=== PATIENT | female | born 1995 | race Caucasian/White ===

== ENCOUNTER → 2021-09-22 18:02 | Outpatient (CLI) | payer BC, SELFPAY ==
[2021-09-22 19:28] LABS: Basophils % 0.5 % (0.1-2.0); Eosinophils # 0.1 K/mm3 (0.0-0.4); Eosinophils % 0.8 % (0.1-12.0); Hematocrit 39.8 % (37.0-47.0); Hemoglobin 12.8 g/dL (12.2-16.2); Lymphocytes # 2.1 K/mm3 (0.7-4.5); Lymphocytes % 26.6 % (10-50); Mean Corpuscular HGB Conc 32.2 g/dL (31.8-35.4); Mean Corpuscular Hemoglobin 28.8 pg (27.0-31.2); Mean Corpuscular Volume 89.2 fl (81-99); Mean Platelet Volume 9.9 fl (7.4-10.4); Monocytes # 0.4 K/mm3 (0.1-1.0); Monocytes % 4.4 % (1.7-9.3); Neutrophils # 5.4 K/mm3 (1.8-7.8); Neutrophils % 67.7 % (37.0-80.0); Platelet Count 389 K/mm3 (142-424); Red Blood Count 4.46 M/mm3 (4.20-5.40); Red Cell Distribution Width 12.9 % (11.5-17.5)
[2021-09-22 20:07] LABS: Alanine Aminotransferase 21 U/L (12-78); Albumin Level 3.8 g/dl (3.5-5.0); Albumin/Globulin Ratio 1.4 (1.1-1.8); Alkaline Phosphatase 81 U/L (38-126); Anion Gap 9.2 mEq/L (5-15); Aspartate Amino Transferase 26 U/L (14-36); Bilirubin,Total 0.3 mg/dl (0.2-1.3); Blood Urea Nitrogen 14 mg/dl (7-17); Calcium 9.3 mg/dl (8.4-10.2); Carbon Dioxide 25 mmol/L (22.0-30.0); Chloride 107 mmol/L (98-107); Chol/HDL Ratio 3.4 (1-3.5); Cholesterol 177 mg/dl (140-200); Estimated Glomerular Filt Rate 76 ml/min (>60); GFR (African American) 92 ML/MIN (>60); Globulin 2.8 g/dL (1.3-3.2); Glucose 93 mg/dl (74-100); HDL Cholesterol 52 mg/dl (40-60); Potassium 4.2 mmoL/L (3.5-5.1); Sodium 137 mmol/L (136-145); Total Protein,Serum 6.6 g/dl (6.3-8.2); Triglycerides 99 mg/dl (30-150); VLDL Cholesterol 20 mg/dL (0-40)
== END ==
PROVIDERS: Visit Provider Nurse Practitioner Family
DX: Z00.00 Encounter for general adult medical examination without abnormal findings (principal)
CPT/HCPCS: 80053; 80061; 84443; 85025

== ENCOUNTER 2024-08-23 08:17 | Outpatient (CLI) | payer BC, SELFPAY ==
[2024-08-23 09:34] LABS: HCG,Quantitative 148 mIU/ml (0-5.42)
[2024-08-24 09:18] LABS: Progesterone 24.5 ng/mL (.)
== END 2024-08-23 23:59 | disposition home or self-care (01) ==
LOC: LAB 08:18
PROVIDERS: PCP Nurse Practitioner Family; Visit Provider Obstetrics & Gynecology
DX: Z34.81 Encounter for supervision of other normal pregnancy, first trimester (principal)
CPT/HCPCS: 36415; 84144; 84702

== ENCOUNTER 2024-09-17 16:15 | Outpatient (CLI) | payer BC, SELFPAY | END 2024-09-17 23:59 | disposition home or self-care (01) | LOC: LAB.DROPOF 16:15 | PROVIDERS: PCP Obstetrics & Gynecology; Visit Provider Obstetrics & Gynecology | DX: Z34.90 Encounter for supervision of normal pregnancy, unspecified, unspecified trimester (principal) | CPT/HCPCS: 87086 ==

== ENCOUNTER 2024-10-17 09:09 | Outpatient (CLI) | payer BC, SELFPAY ==
[2024-10-17 14:56] LABS: RPR W/RFX Titers Nonreactive (Nonreactive)
[2024-10-17 15:08] LABS: HIV Combo NEGATIVE (Negative)
[2024-10-18 05:53] LABS: HCV Ab Non Reactive (Non Reactive); Hepatitis B Surface Antigen Negative (Negative)
[2024-10-18 06:18] LABS: Rubella Antibodies, IgG 1.64 index (Immune >0.99)
== END 2024-10-17 23:59 | disposition home or self-care (01) ==
LOC: LAB 09:10
PROVIDERS: PCP Internal Medicine Adolescent Medicine; Visit Provider Obstetrics & Gynecology
DX: Z34.91 Encounter for supervision of normal pregnancy, unspecified, first trimester (principal); Z3A.12 12 weeks gestation of pregnancy
CPT/HCPCS: 36415; 86592; 86762; 86803; 87340; 87389

== ENCOUNTER 2024-10-19 08:34 | Outpatient (CLI) | payer BC, SELFPAY ==
[2024-10-19 09:20] LABS: Basophils % 0.3 % (0.1-2.0); Eosinophils % 0.5 % (0.1-12.0); Hematocrit 37.7 % (37.0-47.0); Hemoglobin 12.5 g/dL (12.2-16.2); Lymphocytes # 1.5 K/mm3 (0.7-4.5); Lymphocytes % 20.2 % (10-50); Mean Corpuscular HGB Conc 33.2 g/dL (31.8-35.4); Mean Corpuscular Hemoglobin 27.8 pg (27.0-31.2); Mean Platelet Volume 10.7 fl (7.4-10.4); Monocytes # 0.3 K/mm3 (0.1-1.0); Monocytes % 4.2 % (1.7-9.3); Neutrophils # 5.6 K/mm3 (1.8-7.8); Neutrophils % 74.5 % (37.0-80.0); Platelet Count 286 K/mm3 (142-424); Red Blood Count 4.49 M/mm3 (4.20-5.40); Red Cell Distribution Width 12.8 % (11.5-17.5); White Blood Count 7.4 K/mm3 (4.8-10.8)
[2024-10-19 15:29] LABS: HIV Combo NEGATIVE (Negative)
== END 2024-10-19 23:59 | disposition home or self-care (01) ==
LOC: LAB 08:35
PROVIDERS: PCP Internal Medicine Adolescent Medicine; Visit Provider Obstetrics & Gynecology
DX: Z34.90 Encounter for supervision of normal pregnancy, unspecified, unspecified trimester (principal)
CPT/HCPCS: 36415; 85025; 86850; 87389

== ENCOUNTER 2024-12-16 14:01 | Outpatient (CLI) | payer BC, SELFPAY ==
--- NOTE | 2024-12-16 14:01 | US_ITS ---
PROCEDURE: US OB /MATERNAL DETAIL CLINICAL INDICATION: 20 wk anatomy COMPARISON: No exams were available for comparison FINDINGS: Transabdominal sonographic images of the pelvis were obtained. From her established due date she is 20 weeks 4 days. Single viable intrauterine gestation. Cephalic position. Placenta: Anteriorplacenta grade 1. There is an average amount of fluid. The cervix appears satisfactory. Closed and measuring 4.08 cm in length. Complete survey performed and was unremarkable on the submitted images as in PACS. No discrete anomalies identified on survey imaging by technologist. Active fetus. Three-vessel cord with satisfactory umbilical cord insertion. 4- chamber heart noted. Situs, aortic arch, LVOT, RVOT, three-vessel view appear normal. Survey of brain & ventricles Unremarkable. Cerebellum, thalamus, choroid plexus, cisterna magna appear normal. Face and neck survey unremarkable. Profile, nasion, lips and nose appeared normal. Diaphragm and chest views unremarkable. Abdomen: Both kidneys noted and unremarkable. Stomach and bladder noted and satisfactory. Spine: Survey of the spine satisfactory with no anomalies identified nor imaged. Cervical, thoracic, lower spine appear normal. Both arms and legs noted. Amniotic Fluid: Adequate. MVP 4.35 cm Measurements: Average ultrasound age 21weeks 2days. Estimated due date by ultrasound age 0704/26/2025. Estimated weight 413g BPD = 21weeks 2days HC = 20weeks 5days AC = 21weeks 5days FL = 21weeks 1day Growth Percentile= 83 Heart Rate = 155bpm Cerebellum = 19weeks 5days Humerus = 21weeks 3days HC/AC is 1.1 FL/BPD is 0.7 FL/AC is 0.21 IMPRESSION: 1. Viable fetus in the cephalic presentation with an anterior placenta grade 1. 2. The fluid is within normal limits with an amniotic fluid index 4.35 cm. 3. Anatomical examination appears normal. Difficult scan secondary to maternal obesity. 4. biometry is consistent with the dates. Dictated by: Donato Crowder MD 12/16/2024 16:23 Donato Crowder MD in [place] 12/16/2024 16:23
== END 2024-12-16 23:59 | disposition home or self-care (01) ==
LOC: RAD 14:01
PROVIDERS: PCP Internal Medicine Adolescent Medicine; Visit Provider Obstetrics & Gynecology
DX: Z36.3 Encounter for antenatal screening for malformations (principal); Z3A.20 20 weeks gestation of pregnancy
CPT/HCPCS: 76811

== ENCOUNTER 2025-01-27 10:34 | Outpatient (CLI) | payer BC, SELFPAY ==
[2025-01-27 12:31] LABS: Glucose 1 Hour 136 mg/dL (74-100)
== END 2025-01-27 23:59 | disposition home or self-care (01) ==
PROVIDERS: PCP Internal Medicine Adolescent Medicine; Visit Provider Obstetrics & Gynecology
DX: Z3A.28 28 weeks gestation of pregnancy (principal)
CPT/HCPCS: 36415; 82947

== ENCOUNTER 2025-02-07 07:08 | Outpatient (CLI) | payer BC, SELFPAY ==
[2025-02-07 08:10] LABS: Glucose,Fasting 92 mg/dl (74-100)
[2025-02-07 08:59] LABS: Glucose 1 Hour 160 mg/dL (74-100)
[2025-02-07 10:17] LABS: Glucose 2 Hour 129 mg/dL (74-100)
[2025-02-07 10:51] LABS: Glucose 3 Hour 110 mg/dL (74-100)
== END 2025-02-07 23:59 | disposition home or self-care (01) ==
LOC: LAB 07:09
PROVIDERS: PCP Internal Medicine Adolescent Medicine; Visit Provider Obstetrics & Gynecology
DX: O99.210 Obesity complicating pregnancy, unspecified trimester (principal)
CPT/HCPCS: 36415; 82951

== ENCOUNTER 2025-02-19 07:53 | Outpatient (CLI) | payer BC, SELFPAY ==
--- NOTE | 2025-02-19 08:00 | US_ITS ---
PROCEDURE: US OB FOLLOW UP CLINICAL INDICATION: Needs 02/19/25 before 9:30 for Growth COMPARISON: No exams were available for comparison FINDINGS: Transabdominal sonographic images of the pelvis were obtained. The following parameters are obtained: From her established due date she is 29weeks 6days Viable fetus in the cephalic presentation with an anterior placenta grade 1. The cervix measures 3.81 cm AUA 31 weeks 3 days Estimated weight 1768 grams, 3 lb 14 oz heart rate: 132bpm bpm. BPD: 31weeks 1day, 76 percentile HC: 30weeks 6days, 43 percentile AC: 31weeks 4days, 88 percentile FL: 31weeks 5days, 82 percentile HC/AC: 1.02 FL/BPD: 0.78 FL/AC: 0.22 Growth percentile: 89 Amniotic fluid index: 14.49cm, MVP 5.56 cm No obvious anomalies evident. Stomach, bladder, kidneys, three-vessel cord, four chamber heart appear normal. IMPRESSION: 1. Viable fetus in the cephalic presentation with an anterior placenta grade 1. 2. The fluid is within normal limits with an amniotic fluid index 14.49 cm, MVP 5.56 cm. 3. There has been good interval growth with the fetus currently 89th percentile, abdominal circumference is almost 2 weeks ahead. 4. Limited anatomical scan appears normal. Dictated by: Donato Crowder MD 02/19/2025 11:59 Donato Crowder MD in OV 02/19/2025 11:59
== END 2025-02-19 23:59 | disposition home or self-care (01) ==
LOC: RAD 07:53
PROVIDERS: PCP Internal Medicine Adolescent Medicine; Visit Provider Obstetrics & Gynecology
DX: Z36.3 Encounter for antenatal screening for malformations (principal); Z3A.28 28 weeks gestation of pregnancy
CPT/HCPCS: 76816

== ENCOUNTER 2025-03-19 07:49 | Outpatient (CLI) | payer BC, SELFPAY ==
--- NOTE | 2025-03-19 08:00 | US_ITS ---
PROCEDURE: US OB FOLLOW UP CLINICAL INDICATION: 4 week f/u; growth COMPARISON: US US OB /MATERNAL DETAIL from 12/16/2024 US US OB FOLLOW UP from 02/19/2025 FINDINGS: Transabdominal sonographic images of the pelvis were obtained. The following parameters are obtained: From her established due date she is 33weeks 6days Viable fetus in the cephalic presentation with an anterior placenta grade 1. There are several small placental lakes. The cervix measures 2.99 cm heart rate: 128bpm bpm. BPD: 35weeks 3days, 85 percentile HC: 35weeks 4days, 57 percentile AC: 34weeks 6days, 80 percentile FL: 33weeks 5days, 34 percent HC/AC: 1.02 FL/BPD: 0.75 FL/AC: 0.21 Growth percentile: 67 Amniotic fluid: MVP 6.47 cm No obvious anomalies evident. profile seen, stomach, bladder, kidneys, three-vessel cord, four chamber heart appear normal. IMPRESSION: 1. Viable fetus in the cephalic presentation with an anterior placenta grade 1. There are several small placental lakes. 2. The fluid is within normal limits with an MVP 6.47 cm. 3. There has been good interval growth with the fetus currently 67th percentile. The abdominal circumference is now only 1 week ahead. 4. Limited anatomical scan appears normal. Dictated by: Donato Crowder MD 03/19/2025 13:41 Donato Crowder MD in OV 03/19/2025 13:41
== END 2025-03-19 23:59 | disposition home or self-care (01) ==
PROVIDERS: PCP Internal Medicine Adolescent Medicine; Visit Provider Obstetrics & Gynecology
DX: O99.213 Obesity complicating pregnancy, third trimester (principal); E66.9 Obesity, unspecified; Z3A.33 33 weeks gestation of pregnancy
CPT/HCPCS: 76816

== ENCOUNTER 2025-04-04 09:25 | Outpatient (CLI) | payer BC, SELFPAY ==
--- OUTSIDE RECORDS SUMMARY | 2025-01-18 17:30 | XMS_ITS ---
Author Organization [facility] Address [address] [place] [address] Care Team Providers Care Farm Implement Mechanic Name Role Phone Jean Gandhi Primary Care Provider [phone] Amelia Bill Unavailable [phone] Migration, Provider Unavailable Unavailable Allergies Allergen (clinical drug ingredient) Drug/Non Drug Allergy documented on EMR Reaction Allergy Type Onset Date Status ANTIHISTAMINES (uncoded) seizure type symptoms Allergy Active NYQUIL COLD/FLU RELIEF (uncoded) seizure type symptoms Allergy Active REASON FOR VISIT [facility] Conversion Encounter Medications Medication SIG (Take, Route, Frequency, Duration) Notes Start Date End Date Status Flonase Allergy Relief 50 MCG/ACT 1 spray(s) in each nostril once a day for 30 days 05/28/2024 Active predniSONE 20 MG 1 tab(s) orally once a day for 3 days 05/28/2024 Active Pseudoephedrine HCl ER 120 MG 1 tab(s) orally daily for 30 days 05/28/2024 Active Prena1 *Please review a nd pick correct strength-formulati on from [facility] options. If intended option is not shown, discontinue and re-order from Quick Search* Active Tri-Sprintec 0.18/0.215/0.25 MG-35 MCG 1 tab(s) orally once a day Active Encounters Encounter Location Date Provider Diagnosis [facility] [address] [place] [address] 01/18/2025 Provider Migration Plan Of Treatment Medication Medication Name Sig Start Date Stop Date Notes Flonase Allergy Relief 50 MCG/ACT 1 spra y(s) in each nostril once a day for 30 days 05/28/2024 predniSONE 20 MG 1 tab(s) orally once a day for 3 days 05/28/2024 Pseudoephedrine HCl ER 120 MG 1 tab(s) o rally daily for 30 days 05/28/2024 Progress Notes * Hannah OCAMPO DDOB: 5 (29 yo F)Acc No.[id number]:01/18/2025 Patient: Hannah FOX D Provider: Batsheva Tejeda :1995 A ge:29 Y S ex:Female Date:01/18/2025 Address:[address] [place] [address] [place], [id number] Pcp:Jean Gandhi Subjective: * Chief Complaints: * [facility] . [facility] * Medical History: * Medications: T aking Tri-Sprintec 0.18/0.215/0.25 MG-35 MCG Tablet 1 tab(s) orally once a day , Taking Prena1 , Notes to Pharmacist: *Please review and pick [facility]. If intended option is not shown, discontinue and re-order from Quick Search* * Allergies: N YQUIL COLD/FLU RELIEF: seizure type symptoms, ANTIHISTAMINES: seizure type symptoms. Objective: * Vitals: Assessment: Plan: * Treatment: * * Electronic signature of Prov ideandie Migration on 04/07/2025 at 09:38 AM EDT Sign off status: Pending * Provider: Batsheva bowers Migration Date: 01/18/2025 Generated for Saira torres/Ignacio/Maye on: 04/07/2025 09:38 AM EDT
--- OUTSIDE RECORDS SUMMARY | 2025-03-21 11:30 | XMS_ITS ---
Author Organization [facility] IM PE D JESSICA Address [address] [place], [place] [address] Care Team Providers Care Petroleum Products Sales Representative Name Role Phone Jean Gandhi Primary Care Provider Amelia Bill Unavailable [phone] Cele Delgado Unavailable [phone] Allergies Allergen (clinical drug ingredient) Drug/Non Drug [...] a day for 30 days 05/28/2024 Active Vital Signs Temperature 98.5 degrees Fahrenheit 03/21/20 25 Heart Rate 80 /min 03/21/2025 Blood pressure systolic 118 mm Hg 03/21/20 25 Blood pressure diastolic 70 mm Hg 025 Height 5 ft 6.25 in in 03/21/2025 Weight 281.2 lbs 03/21/2025 BMI 45.04 kg/m2 03/21/2025 Encounters Encounter Location Date Provider Diagnosis [facility] [address] [place] [address] 03/21/2025 Cele Delgado Viral URI J06.9 Assessments [...] Hannah OCAMPO DDOB: 5 (29 yo F)Acc No.[id number]:03/21/2025 Progress Notes Patient: Hannah FOX Cecilio Provider: Dali Delgado APRN :1995 A ge:29 Y S ex:Female Date:03/21/2025 Address:[address] [place] [id number] Pcp:Jean Gandhi Subjective: * Chief Complaints: * [...] without rashes. Assessment: * Assessment: 1. V iral URI - J06.9 (Primary) Plan: * Treatment: * Follow Up: p rn * * Sign off status: Completed true * Provider: Dali Delgado APRN Date: 03/21/2025 Generated for Saira torres/Ignacio/Toniaitting on: 0 04/07/2025 09:37 AM EDT History and Physical Notes * HPI [...]
--- OUTSIDE RECORDS SUMMARY | 2025-04-07 09:38 | XMS_ITS | Referral Summary ---
Author Organization [facility] Address [address] [place] [address] Care Team Providers Care Recorder Helper [employer]ity [employer]ing Name Role Phone Unavailable Primary Care Provider Unavailabl e Allergies Active Allergy Reactions Criticality Noted Date Comments Diphenhydramine Hcl 04/26/2023 Medications vitamin w/kczjxys-bwbx-a olate ( PLUS) 27 mg iron- 1 mg Tab Take 1 tablet by mouth daily. Active Active Problems Problem Noted Date Diagnosed Date Gestational hypertension affecting first pregnan cy 05/10/2023 Social History Tobacco Use Types Packs/Day Years Used Date Smoking Tobacco: Never Passive Smoke Exposure: Never Smokeless Tobacco: Never Tobacco Cessation:Counseling Given: Not Answered Alcohol Use Standard Drinks/Week Comments Never 0 (1 standard drink = 0.6 oz pur e alcohol) PRAPARE - Transportation Answer Date Re corded In the past 12 months, has l ack of transportation kept you from medical appointments or from getting medications? No 05/10/2023 Lack of Transportation (Non-Medical) Not on file 05/10/2023 Housing Stability Vital Sign Answer Theo e Recorded In the last 12 months, was t here a time when you were not able to pay the mortgage or rent on time? No 05/10/2023 In the last 12 months, how many places have you lived? 1 05/10/2023 In the last 12 months, was t here a time when you did not have a steady place to sleep or slept in a fci (including now)? No 05/10/2023 Interpersonal Safety Answer Date Record ed Family or friends hurt you Not on file 10/27 Family or friends insult you Not on file 09/2024 Family or friends threaten you Not on file 0 10/27/2023 Family or friends scream or curse at you Not on file 10/27/2023 Housing Stability Answer Date Recorded Living situation today Not on file Living situation problems Not on file 2023 Food Insecurity Answer Date Recorded Food run out past 12 months Not on file 10/16 Food did not last past 12 months Not on file 10/27/2023 Employment Answer Date Recorded Help finding and keeping a job Not on file 0 10/27/2023 Family and Community Support Answer Theo e Recorded Help with Day to Day Activities Not on file 10/27/2023 Feeling Lonely or Isolated Not on file 10/27 Educational Attainment Answer Date Mitchell rded Speak language other than Uruguayan at home Not on file 10/27/2023 Want help with school or training Not on file 10/27/2023 Depression Answer Date Recorded PHQ-2 Risk Not on file 10/27/2023 Disabilities Answer Date Recorded Difficulty concentrating Not on file 024 Difficulty doing errands alone Not on file 0 10/27/2023 Substance Use Answer Date Recorded Used prescription meds for non-medical reasons N ot on file 10/27/2023 Used illegal drugs past 12 months Not on file 10/27/2023 Comments No Sex and Gender Information Value Date Recorded Sex Assigned at Not on file Legal Sex Female 8:50 AM CDT Gender Identity Not on file Sexual Orientation Not on file Last Filed Vital Signs Vital Sign Reading Time Taken Comments Blood Pressure 129/74 05/12/2023 8:00 AM EDT Pulse 82 05/12/2023 8:00 AM EDT Temperature 36.8 C (98.3 F) 05/12/2023 8:00 AM EDT Respiratory Rate 16 05/12/2023 8:00 AM EDT Oxygen Saturation 99% 05/10/2023 6:15 PM EDT Inhaled Oxygen Concentration - - Weight 127.5 kg (281 lb) 05/10/2023 9:59 AM EDT Height 167.6 cm (5' 6 ) 05/10/2023 9:59 AM EDT Body Mass Index 45.35 05/10/2023 9:59 AM EDT Plan of Treatment Not on file Insurance BLUE CROSS/BLUE SHIELD Advance Directives For more information, please contact: [phone] * Full Code (Latest Code Status on File) Date Activated Date Inactivated Comments 05/10/2023 6:53 PM 05/12/2023 2:11 PM If no pulse: No intervention If has pulse: Use intubation, mechanical ventilation, defibrillation, ACLS medications, or cardioversion as indicated. Call [employer] M[employer] TENDER * Full Code Date Activated Date Inactivated Comments 05/10/2023 8:54 AM 05/10/2023 6:53 PM
--- OUTSIDE RECORDS SUMMARY | 2025-04-07 09:38 | XMS_ITS | Patient Health Record ---
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 Name Role Phone Jean Gandhi Primary Care Provider Amelia Bill Unavailable [phone] Cele Delgado Unavailable [phone] Amelia Vickers Unavailable [phone] Migration, Provider Unavailable Unavailable Allergies Allergen (clinical drug ingredient) Drug/Non Drug Allergy documented on EMR Reaction Allergy Type Onset Date Status ANTIHISTAMINES (uncoded) seizure type symptoms Allergy Active NYQUIL COLD/FLU RELIEF (uncoded) seizure type symptoms Allergy Active Results Component Value Reference Range Notes Rapid Strep Reviewed date:05/21/2024 01:02:20 PM Interpretation:Negative Performing Lab: Notes/Report: Negative Rapid Covid Antigen Reviewed date:05/21/2024 04:56:13 PM Interpretation:Negative Performing Lab: Notes/Report: Negative Medications Medication SIG (Take, Route, Frequency, Duration) Notes Start Date End Date Status Amoxicillin 875 MG 1 tablet Orally Twic e a day for 7 days 03/25/2025 Active Prena1 Active Flonase Allergy Relief 50 MCG/ACT 1 spray(s) in each nostril once a day for 30 days 05/28/2024 Active Immunizations Vaccine Route Administration Date Status Comme nts HPV4 (Gardasil Vaccine Dose 3-VFC) Unknown 12/08/2010 Administered HPV4 (Gardasil Vaccine Dose 2-VFC) IM Intramuscular 07/16/2010 Administered Gardisil (HPV4) VFC Unknown 06/01/2010 Administered Adacel (Tdap) IM Intramuscular 06/15/2016 Administered Problems Problem Type SNOMED Code ICD Code Onset Dates Problem Status W/U Status Risk Notes Problem 73304179 Flexural eczema (L20.82) Active confirmed Problem 285469233 Seasonal allergies (J30.2) Active confirmed Problem 486100542 BMI 40.0-44.9, adult (Z68.41) Active confirmed Problem 035264012 BMI 38.0-38.9,adult (Z68.38) Active confirmed Problem 74070585 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 Vital Signs Heart Rate 80 /min 03/21/2025 Temperature 98.5 degrees Fahrenheit 03/21/2025 Blood pressure diastolic 70 mm Hg 03/21/2025 Height 5 ft 6.25 in in 03/21/2025 Blood pressure systolic 118 mm Hg 03/21/2025 Weight 281.2 lbs 03/21/2025 BMI 45.04 kg/m2 03/21/2025 Encounters Encounter Location Date Provider Diagnosis [facility] [address] [place] [address] 01/18/2025 Provider Migration [facility] [place] [address] [address] 05/21/2024 Amleia Vickers Sore throat J02.9 and Viral URI J06.9 [facility] [address] [facility] [address] [place] [address] 03/21/2025 Cele Delgado Viral URI J06.9 [facility] [address] [address] 05/28/2024 Amelia Rancho [facility] [address] [facility] [address] [place] [address] 03/25/2025 Cele Delgado Assessments Encounter Date Diagnosis (ICD Code) Assessment Notes Treatment Notes Treatment Clinical Notes Section Notes 05/21/2024 Viral URI (ICD-10 - J06.9) Reassurance. Strep and covid negative. Discussed the etiology & expected course of a viral URI and discussed the rationale for not prescribing antibiotics. Continue supportive care with PRN antipyretics, OTC cough/cold meds, nasal saline rinses/Neti pot with distilled water, salt water gargles, cough drops, and humidifier. Encourage PO hydration. Patient must be fever and vomit free x 24 hours without fever reducing medications before going back to work. Discussed the signs and symptoms of worsening condition and need for reassessment in clinic or ED. Follow-up at next physical or sooner if needed. Patient to call office if spikes fever in next 48 hours and will provide a work note if needed. 05/21/2024 Sore throat (ICD-10 - J02.9) 03/21/2025 Viral URI (ICD-10 - J06.9) Reassurance. [...] in clinic or ED. Plan Of Treatment Pending Test Test Name Order Date Rapid Strep 05/03/2012 Rapid Strep 12/05/2014 Rapid Strep 03/19/2009 M-Complete Blood Count Auto Diff 020 M-Complete Blood Count Auto Diff 021 M-Comprehensive Metabolic Panel 06/04/20 20 M-Comprehensive Metabolic Panel 05/08/20 19 M-Comprehensive Metabolic Panel 06/16/20 21 M-Hemoglobin A1C 06/16/2021 M-Lipid Panel 05/08/2019 M-Lipid Panel 06/16/2021 M-Lipid Panel 06/04/2020 M-Thyroid Stimulating Hormone 06/04/2020 M-Thyroid Stimulating Hormone 05/08/2019 M-Thyroid Stimulating Hormone 06/16/2021 Insurance Providers Payer Name Payer Address Payer Phone Subscriber Number Group Number Insured Name Patient Relationship to Insured Coverage Start Date [facility]age End Date [facility] [address] [place] [address] [id number] Hannah Ocampo Self - patient is the insured Medications Administered Medication Instructions Date of Administration Dosage Notes Dexamethasone 4mg Injection 10/21/2021 4 mg Dexamethasone 4mg Injection 08/22/2022 4 mg Dexamethasone 4mg Injection 11/08/2023 4 mg Triamcinolone Acetonide 40mg Injection 10/06/2018 1 mL Kenalog 12/05/2014 1 mL Medical (General) History Medical History History ICD Code migraines murmur Eczema Recurrent otitis with tubes during child anders Surgical History Surgery Date(Month/Year) ear tubes 2002 wisdom teeth extracted 2011 Hospitalization History Reason Date(Month/Year) reaction to stahist 2009 passing out 2008
--- OUTSIDE RECORDS SUMMARY | 2025-04-07 09:38 | XMS_ITS | Data Portability ---
Author Organization [facility] SEN Berry ALCOVA CLOSED Address [address] [facility] [address] [place] [address] Assessment No assessment recorded. Plan of Treatment Reminders Order Date Submit Date Provider Last Modified By Organization Details Last Modified Time Details Appointments None recorded. Lab urinalysis panel, auto 2022 023 [facility], [address] [place] [address] , [address], [place], [address], 3 08:39:58 urinalysis panel, auto 2022 023 [facility], [address] [facility] , [address], [place], [address], 3 08:48:54 Referral None recorded. Procedures None recorded. Surgeries None recorded. Imaging None recorded. Medication Orders Tri-Sprinte c (28) 0.18 mg(7)/0.215 mg(7)/0.25 mg(7)-0.035 mg tablet 2022 023 [facility], [address] [place], [address], 3 14:06:03 Tri-Sprinte c (28) 0.18 mg(7)/0.215 mg(7)/0.25 mg(7)-0.035 mg tablet 2022 023 [facility], [address] [place], [address], 10:02:03 Patient TargetsNo targets recorded. Patient InstructionsNo instructions recorded. Reason for Referral None Reported. Results Created Date Observation Date Name Description Value Unit Range Abnormal Flag Note LastModifiedBy Organization Detail LastModifiedTime 04/05/20 23 04/05/2023 urina lysis panel , auto Unknown Analyte Clean Catch Not Available [address], [place], [address], 04/05/2023 08:09:48 04/05/20 23 04/05/2023 urina lysis panel , auto Unknown Analyte Yellow Not Available [address], [place], [address], 04/05/2023 08:09:48 04/05/20 23 04/05/2023 urina lysis panel , auto Unknown Analyte Clear Not Available [address], [place], [address], 04/05/2023 08:09:48 04/05/20 23 04/05/2023 urina lysis panel , auto Unknown Analyte 1.015 Not Available [address], [place], [address], 04/05/2023 08:09:48 04/05/20 23 04/05/2023 urina lysis panel , auto Unknown Analyte 7.0 Not Available [address], [place], [address], 04/05/2023 08:09:48 04/05/20 23 04/05/2023 urina lysis panel , auto Unknown Analyte 25 Alice/ul Trace Not Available [address], [place], [address], 04/05/2023 08:09:48 04/05/20 23 04/05/2023 urina lysis panel , auto Unknown Analyte Negati ve Not Available [address], [place], [address], 04/05/2023 08:09:48 04/05/20 23 04/05/2023 urina lysis panel , auto Unknown Analyte Negati ve Not Available [address], [place], [address], 04/05/2023 08:09:48 04/05/20 23 04/05/2023 urina lysis panel , auto Unknown Analyte Normal Not Available [address], [place], [address], 04/05/2023 08:09:48 04/05/20 23 04/05/2023 urina lysis panel , auto Unknown Analyte 15 mg/dl (Sm) Not Available [address], [place], [address], 04/05/2023 08:09:48 04/05/20 23 04/05/2023 urina lysis panel , auto Unknown Analyte Normal Not Available [address], [place], [address], 04/05/2023 08:09:48 04/05/20 23 04/05/2023 urina lysis panel , auto Unknown Analyte Negati ve Not Available [address], [place], [address], 04/05/2023 08:09:48 04/05/20 23 04/05/2023 urina lysis panel , auto Unknown Analyte Negati ve Not Available [address], [place], [address], 04/05/2023 08:09:48 04/26/20 23 04/29/2023 CULTU RE, GROUP B STREP culture, group B strep No Group B Strept ococcu s isolat ed. Not Available [facility] [address] [facility], [place], [address], 04/29/2023 15:43:25 04/26/20 23 04/26/2023 urina lysis panel , auto Unknown Analyte Clean Catch Not Available [address], [place], [address], 04/26/2023 08:41:14 04/26/2004/26/2023 urina lysis panel , auto Unknown Analyte Yellow Not Available [address], [place], [address], 04/26/2023 08:41:14 04/26/2004/26/2023 urina lysis panel , auto Unknown Analyte Clear Not Available [address], [place], [address], 04/26/2023 08:41:14 04/26/20 23 04/26/2023 urina lysis panel , auto Unknown Analyte 1.010 Not Available [address], [place], [address], 04/26/2023 08:41:14 04/26/2004/26/2023 urina lysis panel , auto Unknown Analyte 7.0 Not Available [address], [place], [address], 04/26/2023 08:41:14 04/26/2004/26/2023 urina lysis panel , auto Unknown Analyte Negati ve Not Available [address], [place], [address], 04/26/2023 08:41:14 04/26/20 23 04/26/2023 urina lysis panel , auto Unknown Analyte Negati ve Not Available [address], [place], [address], 04/26/2023 08:41:14 04/26/2004/26/2023 urina lysis panel , auto Unknown Analyte Negati ve Not Available [address], [place], [address], 04/26/2023 08:41:14 04/26/2004/26/2023 urina lysis panel , auto Unknown Analyte Normal Not Available [address], [place], [address], 04/26/2023 08:41:14 04/26/20 23 04/26/2023 urina lysis panel , auto Unknown Analyte Negati ve Not Available [address], [place], [address], 04/26/2023 08:41:14 04/26/20 23 04/26/2023 urina lysis panel , auto Unknown Analyte Normal Not Available [address], [place], [address], 04/26/2023 08:41:14 04/26/2004/26/2023 urina lysis panel , auto Unknown Analyte Negati ve Not Available [address], [place], [address], 04/26/2023 08:41:14 04/26/20 23 04/26/2023 urina lysis panel , auto Unknown Analyte Negati ve Not Available [address], [place], [address], 04/26/2023 08:41:14 05/05/20 23 05/05/2023 urina lysis panel , auto Unknown Analyte Clean Catch Not Available [address], [place], [address], 05/05/2023 08:27:20 05/05/20 23 05/05/2023 urina lysis panel , auto Unknown Analyte Yellow Not Available [address], [place], [address], 05/05/2023 08:27:20 05/05/20 23 05/05/2023 urina lysis panel , auto Unknown Analyte Cloudy Not Available [address], [place], [address], 05/05/2023 08:27:20 05/05/20 23 05/05/2023 urina lysis panel , auto Unknown Analyte 1.015 Not Available [address], [place], [address], 05/05/2023 08:27:20 05/05/20 23 05/05/2023 urina lysis panel , auto Unknown Analyte 7.0 Not Available [address], [place], [address], 05/05/2023 08:27:20 05/05/20 23 05/05/2023 urina lysis panel , auto Unknown Analyte Negati ve Not Available [address], [place], [address], 05/05/2023 08:27:20 05/05/20 23 05/05/2023 urina lysis panel , auto Unknown Analyte Negati ve Not Available [address], [place], [address], 05/05/2023 08:27:20 05/05/20 23 05/05/2023 urina lysis panel , auto Unknown Analyte Negati ve Not Available [address], [place], [address], 05/05/2023 08:27:20 05/05/20 23 05/05/2023 urina lysis panel , auto Unknown Analyte Normal Not Available [address], [place], [address], 05/05/2023 08:27:20 05/05/20 23 05/05/2023 urina lysis panel , auto Unknown Analyte 15 mg/dl (Sm) Not Available [address], [place], [address], 05/05/2023 08:27:20 05/05/20 23 05/05/2023 urina lysis panel , auto Unknown Analyte Normal Not Available [address], [place], [address], 05/05/2023 08:27:20 05/05/20 23 05/05/2023 urina lysis panel , auto Unknown Analyte Negati ve Not Available [address], [place], [address], 05/05/2023 08:27:20 05/05/20 23 05/05/2023 urina lysis panel , auto Unknown Analyte Negati ve Not Available [address], [place], [address], 05/05/2023 08:27:20 05/10/20 23 05/10/2023 urina lysis panel , auto Unknown Analyte Clean Catch Not Available [address], [place], [address], 05/10/2023 08:31:32 05/10/20 23 05/10/2023 urina lysis panel , auto Unknown Analyte Pretty Not Available [address], [place], [address], 05/10/2023 08:31:32 05/10/20 23 05/10/2023 urina lysis panel , auto Unknown Analyte Clear Not Available [address], [place], [address], 05/10/2023 08:31:32 05/10/20 23 05/10/2023 urina lysis panel , auto Unknown Analyte 1.020 Not Available [address], [place], [address], 05/10/2023 08:31:32 05/10/20 23 05/10/2023 urina lysis panel , auto Unknown Analyte 6.0 Not Available [address], [place], [address], 05/10/2023 08:31:32 05/10/20 23 05/10/2023 urina lysis panel , auto Unknown Analyte Negati ve Not Available [address], [place], [address], 05/10/2023 08:31:32 05/10/20 23 05/10/2023 urina lysis panel , auto Unknown Analyte Negati ve Not Available [address], [place], [address], 05/10/2023 08:31:32 05/10/20 23 05/10/2023 urina lysis panel , auto Unknown Analyte Negati ve Not Available [address], [place], [address], 05/10/2023 08:31:32 05/10/20 23 05/10/2023 urina lysis panel , auto Unknown Analyte Normal Not Available [address], [place], [address], 05/10/2023 08:31:32 05/10/20 23 05/10/2023 urina lysis panel , auto Unknown Analyte Negati ve Not Available [address], [place], [address], 05/10/2023 08:31:32 05/10/20 23 05/10/2023 urina lysis panel , auto Unknown Analyte Normal Not Available [address], [place], [address], 05/10/2023 08:31:32 05/10/20 23 05/10/2023 urina lysis panel , auto Unknown Analyte Negati ve Not Available [address], [place], [address], 05/10/2023 08:31:32 05/10/20 23 05/10/2023 urina lysis panel , auto Unknown Analyte Negati ve Not Available [address], [place], [address], 05/10/2023 08:31:32 04/26/20 23 04/26/2023 US, obste tric, limit ed [place] [address] [place] [address] Patistuart chaparro Name: HANNAH mayfield : [birth year] 95 Heather mayfield 62 Orderi ng Provid er: ANDERS LAUREANO EXAM DATE: 2022 EXAM: US LIMITE D TRANSA BDOMIN AL CLINIC AL INFORM ATION: LMP: 2021. TECHNI QUE: Multip le sonogr aphic images of the pelvis were obtain ed throug h transa bdomin al route. COMPAR ASHVIN: None. FINDIN GS: GENERA L: Single live fetus. heart rate = 127 bpm. MEASUR EMENTS : Bipari etal Diamet er = 9.1 cm; 37 weeks 0 days. Head Circum ferenc e = 33.4 cm; 38 weeks 2 days. Abdomi nal Circum ferenc e = 33.2 cm; 37 weeks 1 day. Femur Length = 7.2 cm; 37 weeks 1 day. EFW = 3157 gm; 84 percen tile based on gestat ional age by LMP. AMNIOT IC FLUID: MARKUS = 14.5 cm. POSITI ON: Cephal ic presen tation . Placen ta is anteri or. IMPRES KADY: 1. Single live intrau terine fetus in cephal ic presen tation . 2. age by LMP = 35 weeks 6 days; Curren t age by first exam of 10/20/19 23 = 35 weeks 4 days; Curren t age by exam today = 36 weeks 6 days. Interp reted By: Ree vAila MD Electr onical ly Signed By: Ree Avila MD on 023 1:34 PM [facility] [address] [address], [place], [address], 04/27/2023 21:06:41 Result Notes None recorded. Problems Name Problem SNOMED Code Status Onset Date Resolution Date Notes Provider Name and Address Organization Details Recorded Time 53964653 Completed 023 06/20/2023 Katharine Worthington [facility], [facility] 3 09:48:12 Problem Notes None recorded. Procedures Surgical History Date Name Laterality Status Provider Name and Address Organization Details Recorded Time 1 Pap Smear collection completed OMER RODRIGUEZ, CORE WORKER [address] [place], [address], [facility] 06/28/2021 14:19:34 1 Date of Last Pap Smear completed Angela Ortega [facility] 12/09/2022 08:05:34 procedure on ear completed Shawnapat Dowd [facility] 06/24/2020 14:45:54 [place] Teeth Extraction completed Shawna Dowd [facility] 06/24/2020 14:46:00 Imaging Results None recorded. Procedure Notes None recorded. Medical Equipment None Reported. Allergies Allergen ID Allergen Name Allergen Category Reaction Reaction Severity Criticality Documentation Date Start Date Code Code System Note Provider Name and Address Organization Details Recorded Time 954489 Benadryl medicatio n seizure moderate Not available 06/24/2020 7 RxNorm any simil ar medic ation as well [facility] 0 14:39:31 [id number] diphenhyd ramine hydrochlo ride medicatio n Not available Not available Not available 05/12/20232022 1362 RxNorm Poly Lynn [facility] 16:13:37 Medications Name Sig Start Date Stop Date Status Note LastModified by Organization Details LastModified Time Tri-Sprint ec (28) 0.18 mg(7)/0.21 5 mg(7)/0.25 mg(7)-0.03 5 mg tablet Take 1 tablet every day by oral route for 84 days. 023 active Not Available Not Available Not Avai lable active Not Available Not Avai lable Not Available Vitals Date Recorded Body weight Provider Name an d Address Organization Details Last Updated DateTime 05/05/2023 62126.431921 g Cecilio [address]UMONT O [address] [place], [address], [facility] 05/05/2023 08:27:09 Date Recorded Body height Body mass index (BMI) Systolic blood pressure Diastolic blood pressure Provider Name and Address Organization Details Last Updated DateTime 05/05/2023 167.64 cm 29.5 kg/m2 138 mm[Hg] 90 mm[Hg] Ashleigh Diaz [facility] 05/05/2023 08:06:03 Date Recorded Body height Body mass index (BMI) Body weight Systolic blood pressure Diastolic blood pressure Provider Name and Address Organization Details Last Updated DateTime 05/10/2023 167.64 cm 45.5 kg/m2 121018.6 78938 g 152 mm[Hg] 98 mm[Hg] Ashleigh [facility] 3 08:11:44 Date Recorded Body height Body mass index (BMI) Body weight Systolic blood pressure Diastolic blood pressure Provider Name and Address Organization Details Last Updated DateTime 05/17/2023 167.64 cm 41.7 kg/m2 015872.2 7 g 138 mm[Hg] 82 mm[Hg] [facility] 3 09:35:58 Date Recorded Body height Body mass index (BMI) Body weight Systolic blood pressure Diastolic blood pressure Provider Name and Address Organization Details Last Updated DateTime 06/20/2023 167.64 cm 41.2 kg/m2 079349.8 32602 g 128 mm[Hg] 78 mm[Hg] Katharine Worthington [facility] 3 09:47:30 Date Recorded Body height Body mass index (BMI) Body weight Systolic blood pressure Diastolic blood pressure Provider Name and Address Organization Details Last Updated DateTime 07/26/2023 167.64 cm 41.8 kg/m2 406830.4 2 g 132 mm[Hg] 68 mm[Hg] Cira Avni [facility] 3 13:41:19 Social History Question Answer Notes LastModified by Paper Hunter Details LastModified Time Tobacco Smoking Status Never Smoker [facility] 06/24/2020 14:45:11 What Is Your Level Of Caffeine Consumption? Moderate [email or web address] Information not available 06/24/2020 How Much Tobacco Do You Chew? None [email or web address] Information not available 06/24/2020 What Was The Date Of Your Most Recent Tobacco Screening? 07/26/2023 [email or web address] Information not available 07/26/2023 How Much Tobacco Do You Smoke? No [email or web address] Information not available 06/24/2020 Has Tobacco Cessation Counseling Been Provided? No [email or web address] Information not available 12/09/2022 Sex: Female Functional Status Question Answer Note LastModified by Paper Hunter Details LastModified Time Do you use any illicit or recreational drugs? No [email or web address] Information not available 01/06/2023 Do you or have you ever used any other forms of tobacco or nicotine? No [email or web address] Information not available 12/09/2022 What is your level of alcohol consumption? Moderate [email or web address] Information not available 06/24/2020 Do you or have you ever used smokeless tobacco? Never used smokeless tobacco [email or web address] Information not available 06/24/2020 Do you or have you ever used e-cigarettes or vape? Never used electronic cigarettes Information not available 06/24/2020 Mental Status None recorded. Family History Relationship Description Onset Age of this Age Resolved Age Notes LastModified by Organization Details LastModified Time Maternal Grandmother Diabetes mellitus Not available 06/24 14:45:06 Medical History Condition Response Other N Depression N Arthritis N Cancer N Stroke N Varicosities N Hoarseness N Headaches Y Kidney Disease N Heart Problems N Bleeding Disorder N AIDS/HIV N Asthma N Hepatitis N Chicken Pox Y Lung Disease N Glaucoma N Anesthesia Complications Y Deep Vein Thrombosis N Shortness of Breath N High Cholesterol N Liver Disease N Thyroid Problems N Anemia N Immune System Disorder N Heart Attack ([place]) N Diabetes N Seizures/Epilepsy N Hyperlipidemia N Sleep Apnea N Hypertension N Gynecological History Statement/Question Response Abnormal Pap N Regular Cycles Y Date of Last Mammogram Flow Light Date of LMP 07/18/2023 STIs/STDs N Real Heavy Periods N HPV Vaccine Y Duration of Flow (days) 4 Age at Menarche 11 Current Control Method BCPs Painful Periods Y Date of Last Colonoscopy Most Recent Bone Density Menses Monthly Y Date of Last Pap Smear 06/28/2021 LMP Definite Obstetrics History GPAL:G 1 P 1 0 0 1 Type Value Full Term 1 Living 1 Total 1 Immunizations Vaccine Type Date Status Note Provider Nam e and Address Organization Details Recorded Time Tdap 3 completed NOA LAUREANO DO [address] [place], [address], [facility] 04/05/2023 09:16:55 Tdap 6 completed Not Available [facility] 05/12/2023 16:12:28 DTP-Hib 6 completed Not Available [facility] 05/12/2023 16:12:28 MMR 9 completed Not Available [facility] 05/12/2023 16:12:28 MMR 6 completed Not Available [facility] 05/12/2023 16:12:28 OPV 9 completed Not Available [facility] 05/12/2023 16:12:28 DTaP, unspecified formulation 9 completed Not Available [facility] 05/12/2023 16:12:28 Past Encounters Encounter ID Performer Location Encounter Start Date Encounter Closed Date Diagnosis/Indication Diagnosis SNOMED-CT Code Diagnosis ICD10 Code Diagnosis Note [id number] [address] [place] [address] 4 06/24/2020 14:27:02 06/24/2020 15:24:17 Routine gynecologic examination done 9996833100 9101 Z01.419 [facility] 441214832 Z30.[id number] [place] [id number] 06/28/2021 13:45:16 06/28/2021 14:20:06 Gynecologic examination 78542503 Z01.419 PAP obtained todaywill contact patient with resultsNdt ient to follow up in one year for annual exam or sooner as needed Screening for malignant neoplasm of cervix 207157256 Z12.4 [facility] 467873192 Z30.9 No C/I to estrogenNo history of migraines: PE: DVTNon smokerDeni es ACHES [id number] [address] [place] [address] 07/09/2021 14:23:45 07/09/2021 14:40:38 Pain in pelvis 58444767 R10.2 Discussed that right sided pain was likely ovulation due to descriptio n of symptoms and time during cycle it was occurring. Ultrasound was normal. Abnormal u terine bleeding 4636979043 9100 N93.9 Discussed that spotting was likely from pap smear and missing the couple doses of OCPs. Advised to try and take them the same time each day and will decrease likelihood of spotting. [id number] [address] [place] [address] 07/22/2022 13:29:06 07/22/2022 14:19:18 Gynecologic examination 52134294 Z01.419 PAP not indicated todayPatie nt to follow up in one year for annual exam or sooner as needed Family crory nning education 217661435 Z30.02 Recommende d weight loss prior to pregnancyD iscussed increased infertilit y, miscarriag es and complicati ons related to increased BMIAlso advised patient to start PNV now Recommende d avoidance of NSAIDs during ovulationP atient verbalized understand ing [id number] [address] [place] [address] 4 09/23/2022 09:25:31 09/23/2022 10:45:56 Amenorrhea 93855328 N91.2 of unknown location. Discussed possibilit y of normal vs miscarriag e vs ectopic . Discussed the life threatenin g nature of ectopic if not treated immediatel y. Pt to return to ER immediatel y if abdominal pain worsens, vaginal bleeding increases to >1 pad/hr or if pt starts to feel lightheade d or dizzy. Pt states that she understand s and all questions were answered. Will obtain HCG and progestero ne levels and call with results. [id number] [address] [place] [address] 4 10/20/2022 09:09:17 10/20/2022 10:37:16 Normal 66888049 Z34.80 New OB labs todayNT u/s next visit [id number] [address] [place] [address] 4 11/14/2022 07:41:55 11/14/2022 09:04:34 Routine care 015590390 Z34.91 New OB labs WNLNT WNLNIPT today [id number] [address] [place] [address] 4 12/09/2022 07:55:42 12/09/2022 08:35:42 Routine care 958632218 Z34.91 New OB labs WNLNT WNLNIPT low risk femaleAFP todayFetal anatomy next visit [id number] [address] [place] [address] 4 01/06/2023 07:55:48 01/06/2023 08:28:40 Routine care 431973278 Z34.92 New OB labs WNLNT WNLNIPT low risk femaleAFP low riskFetal anatomy WNL [id number] DO [address] [place] [address] 4 02/03/2023 08:16:02 02/03/2023 08:52:13 Routine care 425228410 Z34.92 New OB labs WNLNT WNLNIPT low risk femaleAFP low riskFetal anatomy WNLGCT next visit [id number] DO [address] [place] [address] 4 03/03/2023 07:57:06 03/03/2023 08:49:47 Routine care 757561340 Z34.92 New OB labs WNLNT WNLNIPT low risk femaleAFP low riskFetal anatomy WNLGCT today [id number] [address] [place] [address] 4 03/17/2023 07:58:04 03/17/2023 08:21:43 Routine care [id number] Z34.92 New OB labs WNLNT WNLNIPT low risk femaleAFP low riskFetal anatomy WNLGCT elevated, needs GTT- completing todayTdap next visit [id number] [address] [place] [address] 4 04/05/2023 07:52:22 04/05/2023 08:39:42 Routine care 192702885 Z34.92 New OB labs WNLNT WNLNIPT low risk femaleAFP low riskFetal anatomy WNLGCT elevated, needs GTT WNLTdap todayGBS and growth scan next visit Administra tion of diphtheria, pertussis, and tetanus vaccine 101081655 Z23 [id number] [address] [place] [address] 04/26/2023 07:37:27 04/26/2023 09:30:03 Routine care 490270160 Z34.92 New OB labs WNLNT WNLNIPT low risk femaleAFP low riskFetal anatomy WNLGCT elevated, needs GTT WNLs/p TdapGBS todayGrowt h scan WNL [id number] DO HANY DUMONT [facility] [address] [place] [address] 05/05/2023 08:00:06 05/05/2023 08:36:02 Routine care 004061155 Z34.92 New OB labs WNLNT WNLNIPT low risk femaleAFP low riskFetal anatomy WNLGCT elevated, needs GTT WNLs/p TdapGBS negativeGr owth scan WNL [id number] DO HANY DUMONT [facility] [address] [place] [address] 05/10/2023 08:06:36 05/10/2023 08:45:12 Routine care [id number] Z34.92 New OB labs WNLNT WNLNIPT low risk femaleAFP low riskFetal anatomy WNLGCT elevated, needs GTT WNLs/p TdapGBS negativeGr owth scan WNL - induced hypertension 12175413 O13.9 Will send to L&D for induction [id number] DO HANY DUMONT [facility] [address] [place] [address] 05/17/2023 08:56:59 05/17/2023 10:23:10 Maternal depression screening 9481836810 90841 Z13.32 Brief emotional/ behavioral assessment (e.g., depression inventory) , with scoring of __8 us ing instrument , [place] Depression Scale. state, 2 weeks 57470663 Z39.2 Doing well so far. Will have her return in 5 weeks for exam and control discussion . [id number] DO HANY CHATMAN [facility] [address] [place] [address] 06/20/2023 09:43:17 06/20/2023 10:18:30 Maternal depression screening [id number] Z13.32 Brief emotional/ behavioral assessment (e.g., depression inventory) , with scoring of ___0____ using instrument , Elwood Depression Scale. state [id number] 1 Z39.2 patient is PP from svdmom and baby are doing wellshe is bottle feeding without difficulty her mood is appropriat e and denies SI/HIshe was counseled on options for bc including r/b/a to each and desires to go back to cocpelvic exam wnlPap 2020 nil F/u after 07/22/22 for annual or sooner if needed Contracept ion care management [id number] Z30.9 denies c/i to estrogen. rba discussed to options. desires to restart pills.rx sent to get to annualf/u bp check/clementine al Acne [id number] L70.9 discussed bc options that are most vs least helpful. desires to restart olivia. rx sent [id number] OMER RODRIGUEZ APRN [facility] [address] [place] [address] 07/26/2023 13:34:34 07/26/2023 14:02:43 Gynecologic examination [id number] Z01.419 PAP not indicated todayPatie nt to follow up in one year for annual exam or sooner as needed Contracept ion care management [id number] Z30.9 No history of migraines, DVT/PEnon smokerDeni es ACHESconti nue with current regimen Health Concerns Section Related Observation LastModified by Organization Detai ls LastModified Time None Recorded Concern Status LastModified by Organization Details LastModified Time None Recorded Advance Directives Directive None Recorded Payers Insurance Date Sequence Insurance Name Policy Number Policy No Covered Member ID No Member ID Guarantor Name 07/29/2024 1 [employer]ANDANA (PPO) [id number] Hannah Ocampo [id number] Hannah Ocampo Notes Date Note Type Note Provider Name and Address Organization Details Recorded Time 05/17/2023 text/html Patient here for visit s/p vaginal delivery 1 weeks ago. Doing well. Minimal lochia. Denies abnormal discharge, fever, chills. Formula feeding without difficulty. Denies signs of blues/depression NOA LAUREANO, DO [address] [place], [address], [facility] 05/17/2023 12:24:02 06/20/2023 text/html patient is PP fr om svdshe is doing wellbaby is doing wellshe is bottle feeding without difficultyher mood is appropriate and denies SI/HIshe denies fever, chills, nausea, vomiting, and her bleeding has stopped today on ROS she denies nausea, vomiting, fever, chills, hematuria, dysuria, abnormal vaginal discharge, odor, or itching. 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 [address] [place], [address], [facility] 07/26/2023 14:04:14 OBGyn Episode Ob Episode Information Episode Created Date Number of Fetuses Patient Bloodtype Patient rh Status Prepregnancy Weight lbs Domestic Partner Domestic Partner Phone Father Name Mobile Security Architect Status 10/20/19 23 1 B Positive 271 CLOSED Fetus Data First Name Last Name Admitted to NICU Weight (g) Sex Living Outcome Pediatric Complications Fetus ID Race Codes Race Delivery Type Mayra Lindsay [phone] F true Full Term [id number] Vaginal Jason Calculation Initial Jason Date Initial Exam Date Initial Exam Provider Initial Ultrasound Date Last Menstrual Period Date Ultra Sound Weeks Gestation 05/22/2023 10/20/2022 10/20/2022 08/15/2022 8 Eighteen To Twenty Week Jason Update Ultra Sound Date Fundal Height At Umbil Quickening Date Ultra Sound Latest Weeks Gestation Final Jason Confirmed By Final Jason Confirmed Date Final Jason Date Ultra Sound Latest Days Gestation 0 [email or web address] 10/20/2022 05/22/20 23 0 Pre- Flowsheet Flowsheet Date 10/20/2022 Fuentes Score Blood Edema Fundus Height Fundus Units Glucose Ketones Leukocytes Nitrite Labor Signs Protein Cervic Dilation Cervic Effacement Cervic Station 9 wks none Type Weight in lbs Pre/Post Dialysis Refused Weight 268.006331161679 BP Diastolic BP Location Tested BP Systolic BP Type 60 128 Fetus Heart Rate Present A 171 Fetus Movement Comments at 9w3d by LMP here for new OB visit. Admits to some nausea, no vomiting. Denies cramping, VB. Discussed sequential vs NIPT. New OB labs and exam today. Call precautions re viewed. RTC 3wk Flowsheet Date 11/14/2022 Fuentes Score Blood Edema Fundus Height Fundus Units Glucose Ketones Leukocytes Nitrite Labor Signs Protein Cervic Dilation Cervic Effacement Cervic Station neg 13 wks none negative none neg Type Weight in lbs Pre/Post Dialysis Refused Weight 264.63898289351 BP Diastolic BP Location Tested BP Systolic BP Type 84 130 Fetus Heart Rate Present A 154 Fetus Movement Comments Denies cramping, VB. Nausea resolved. Call precautions reviewed. RT 4wk Flowsheet Date 12/09/2022 Fuentes Score Blood Edema Fundus Height Fundus Units Glucose Ketones Leukocytes Nitrite Labor Signs Protein Cervic Dilation Cervic Effacement Cervic Station neg 16 wks none negative none neg Type Weight in lbs Pre/Post Dialysis Refused Weight 266.357490421753 BP Diastolic BP Location Tested BP Systolic BP Type 68 L arm 112 sitting Fetus Heart Rate Present A 158 Fetus Movement Comments Denies cramping, VB, LOF. Ca ll precautions reviewed. RT 4wk Flowsheet Date 01/06/2023 Fuentes Score Blood Edema Fundus Height Fundus Units Glucose Ketones Leukocytes Nitrite Labor Signs Protein Cervic Dilation Cervic Effacement Cervic Station neg 20 wks none negative none neg Type Weight in lbs Pre/Post Dialysis Refused Weight 130.511954186535 BP Diastolic BP Location Tested BP Systolic BP Type 70 L arm 126 sitting Fetus Heart Rate Present A 148 Fetus Movement Comments Denies cramping, VB, LOF. no t yet feeling FM. Call precautions reviewed. RTC 4wk Flowsheet Date 02/03/2023 Fuentes Score Blood Edema Fundus Height Fundus Units Glucose Ketones Leukocytes Nitrite Labor Signs Protein Cervic Dilation Cervic Effacement Cervic Station neg 24 wks none negative none neg Type Weight in lbs Pre/Post Dialysis Refused Weight 274.680116116171 BP Diastolic BP Location Tested BP Systolic BP Type 84 132 Fetus Heart Rate Present A 142 Fetus Movement A Yes Comments Denies cramping, VB, LOF. Go od FM. Call precautions reviewed. RT 4wk Flowsheet Date 03/03/2023 Fuentes Score Blood Edema Fundus Height Fundus Units Glucose Ketones Leukocytes Nitrite Labor Signs Protein Cervic Dilation Cervic Effacement Cervic Station neg 28 wks none small none neg Type Weight in lbs Pre/Post Dialysis Refused Weight 276.853221288191 BP Diastolic BP Location Tested BP Systolic BP Type 74 L arm 122 sitting Fetus Heart Rate Present A 142 Fetus Movement A Yes Comments Denies ctx, VB, LOF. Good FM . Call precautions reviewed. RT 2wk Flowsheet Date 03/17/2023 Fuentes Score Blood Edema Fundus Height Fundus Units Glucose Ketones Leukocytes Nitrite Labor Signs Protein Cervic Dilation Cervic Effacement Cervic Station neg 30 wks none negative none neg Type Weight in lbs Pre/Post Dialysis Refused Weight 273.648205749272 BP Diastolic BP Location Tested BP Systolic BP Type 80 124 Fetus Heart Rate Present A 142 Fetus Movement A Yes Comments Denies ctx, VB, LOF. Good FM . Call precautions reviewed. RT 2wk Flowsheet Date 04/05/2023 Fuentes Score Blood Edema Fundus Height Fundus Units Glucose Ketones Leukocytes Nitrite Labor Signs Protein Cervic Dilation Cervic Effacement Cervic Station neg 33 wks none small none neg Type Weight in lbs Pre/Post Dialysis Refused Weight 272.584721413926 BP Diastolic BP Location Tested BP Systolic BP Type 78 118 Fetus Heart Rate Present A 130 Fetus Movement A Yes Comments Denies ctx, VB, LOF. Good FM . Call precautions reviewed. RT 3wk Flowsheet Date 04/26/2023 Fuentes Score Blood Edema Fundus Height Fundus Units Glucose Ketones Leukocytes Nitrite Labor Signs Protein Cervic Dilation Cervic Effacement Cervic Station neg 36 wks none negative none neg 0cm Type Weight in lbs Pre/Post Dialysis Refused BP Diastolic BP Location Tested BP Systolic BP Type 72 122 Fetus Heart Rate Present A 127 Fetus Movement A Yes Comments Denies ctx, VB, LOF. Good FM . Call precautions reviewed. RTC 2wk Flowsheet Date 05/05/2023 Fuentes Score Blood Edema Fundus Height Fundus Units Glucose Ketones Leukocytes Nitrite Labor Signs Protein Cervic Dilation Cervic Effacement Cervic Station neg 37 wks none negative none neg Type Weight in lbs Pre/Post Dialysis Refused Weight 182.552078991753 BP Diastolic BP Location Tested BP Systolic BP Type 90 138 Fetus Heart Rate Present A 147 Fetus Movement A Yes Comments Denies ctx, VB, LOF. Good FM . Denies s/s preeclampsia. Discussed that if BP 140/90 next visit, will send for induction. Call precautions reviewed. RTC 1wk Flowsheet Date 05/10/2023 Fuentes Score Blood Edema Fundus Height Fundus Units Glucose Ketones Leukocytes Nitrite Labor Signs Protein Cervic Dilation Cervic Effacement Cervic Station neg 38 wks none negative none neg 3cm 100% - 2 Type Weight in lbs Pre/Post Dialysis Refused Weight 281.466432188432 BP Diastolic BP Location Tested BP Systolic BP Type 98 152 Fetus Heart Rate Present A 140 Fetus Movement A Yes Comments Feeling some pressure. Denie s VB, LOF. Call precautions reviewed. RTC Flowsheet Date 05/17/2023 Fuentes Score Blood Edema Fundus Height Fundus Units Glucose Ketones Leukocytes Nitrite Labor Signs Protein Cervic Dilation Cervic Effacement Cervic Station Type Weight in lbs Pre/Post Dialysis Refused Weight 258.882294353843 BP Diastolic BP Location Tested BP Systolic BP Type 82 138 Fetus Heart Rate Present Fetus Movement Comments Flowsheet Date 06/20/2023 Fuentes Score Blood Edema Fundus Height Fundus Units Glucose Ketones Leukocytes Nitrite Labor Signs Protein Cervic Dilation Cervic Effacement Cervic Station Type Weight in lbs Pre/Post Dialysis Refused Weight 255.97025035736 BP Diastolic BP Location Tested BP Systolic BP Type 78 L arm 128 sitting Fetus Heart Rate Present Fetus Movement Comments Menstrual History Last Menstrual Date Menses Monthly On Bcp Conception Prior Menses Frequency Hcg Plus Date Menarche Onset Age 1008/15/2022 Genetic Screening And Infection History Question Response Note Patient's Age Will Be 35 Years Or Older At Estim ated Date of Delivery false Thalassemia (Mongolian, Vietnamese, Mediterranean, Or Background): MCV < 80 false Neural Tube Defect (Meningomyelocele, Spina Bifi da, Or Anencephaly) false Congenital Heart Defect false Down Syndrome false Gennaro-Sachs (eg, Spiritism, Cajun, Welsh-Palauan) f alse Yemi Disease false Sickle Cell Disease Or Trait () false Hemophilia Or Other Blood Disorders false Muscular Dystrophy false Cystic Fibrosis false Caddo's Chorea false Mental Retardation/Autism false If Yes, Was Person Tested For Fragile X? false Other Inherited Genetic Or Chromosomal Disorder false Maternal Metabolic Disorder (eg, Type 1 Diabetes , PKU) false Patient Or Baby's Father Had A Child With Defects Not Listed Above false Recurrent Loss, Or A Stillbirth false Medications (including Suppl ements, Vitamins, Herbs, OTC Drugs), Illicit/Recreational Drugs, Alcohol false If Yes, Agent(s) And Strength/Dosage false Any Other Genetic History false Live With Someone With TB Or Exposed To TB false Patient Or Partner Has History Of Genital Herpes false Rash Or Viral Illness Since Last Menstrual Perio d false History Of STD, Gonorrhea, Chlamydia, HPV, Syphi lis false Other Infection History false History of HIV false History of Hepatitis false Prior GBS-infected child false Delivery Information Delivery Date Delivery Type Labor Anesthesia Weeks Gestation Incision Type Labor Labor Length Hrs Delivered By Post Complications Tubal Sterilization Discharge Date Comments 3 Induce d [facility]- [facility] 38.2 Noa Laureano DO Discharge Information Feeding Method Contraceptive Method Maternal HG B and HCT Levels
--- OUTSIDE RECORDS SUMMARY | 2025-04-07 09:38 | XMS_ITS | Clinical Summary ---
Author Organization [employer] Address [address] [place] [address] Care Team Providers Care Electrophysiologist Name Role Phone Unavailable Primary Care Provider Unavailabl e Allergies Active Allergy Reactions Criticality Noted Date Comments Diphenhydramine Hcl 04/26/2023 Medications vitamin w/weiurju-nvgf-g olate ( PLUS) 27 mg iron- 1 [...] place to sleep or slept in a [facility] (including now)? No 05/10/2023 Interpersonal Safety Answer [...] Date Mitchell rded Speak language other than Beninese at home Not on file 10/27/2023 Want [...] 05/10/2023 9:59 AM EDT Plan of Treatment Health Maintenance Due Date Last Done Comments Depression Screening (12+) 2006 HIV Screening 2009 Hepatitis C Screening 2012 Lipid Panel 2014 Pap Smear 2015 Tobacco Cessation Counseling and Screening (12+) 05/10/2024 05/10/2023 COVID-19 VACCINE (1 - 2023-2 5 season) 2024 Influenza Vaccine (Season Ended) 2025 DTAP/TDAP/TD VACCINES (4 - T d or Tdap) 04/05/2033 04/05/2023, 01/19/2006, 02/28/1996 Pneumococcal Vaccine: 0-49 Years Aged Out No longer eligible b ased on patient's age to complete this topic Insurance BLUE CROSS/BLUE SHIELD Advance Directives For more information, please contact: [phone] * Full Code (Latest Code Status on File) Date Activated Date Inactivated Comments 05/10/2023 6:53 PM 05/12/2023 2:11 PM If no pulse: No intervention If has pulse: Use intubation, mechanical ventilation, defibrillation, ACLS medications, or cardioversion as indicated. Call PAPER BALING MACHINE OPERATOR * Full Code Date Activated Date Inactivated Comments 05/10/2023 8:54 AM 05/10/2023 6:53 PM
== END 2025-04-04 23:59 | disposition home or self-care (01) ==
LOC: LAB.DROPOF 04-07 09:25
PROVIDERS: PCP Internal Medicine Adolescent Medicine; Visit Provider Obstetrics & Gynecology
DX: Z87.59 Personal history of other complications of pregnancy, childbirth and the puerperium (principal)
CPT/HCPCS: 86403

== ENCOUNTER 2025-04-17 05:14 | Inpatient (IN) | payer BC, SELFPAY ==
--- OUTSIDE RECORDS SUMMARY | 2025-01-18 17:30 | XMS_ITS ---
Author Organization [facility]ESS[facility] Address [address] [place] [address] Care Team Providers Care Car Unloader Helper Name Role Phone Jean Gandhi Primary Care Provider [phone] Amelia Bill Unavailable [phone] Migration, Provider Unavailable Unavailable Allergies Allergen (clinical drug ingredient) Drug/Non Drug Allergy documented on EMR Reaction Allergy Type Onset Date Status ANTIHISTAMINES (uncoded) seizure type symptoms Allergy Active NYQUIL COLD/FLU RELIEF (uncoded) seizure type symptoms Allergy Active REASON FOR VISIT Multum To [facility] Conversion Encounter Medications Medication SIG (Take, Route, Frequency, Duration) Notes Start Date End Date Status Flonase Allergy Relief 50 MCG/ACT 1 spray(s) in each nostril once a day; Duration: 30 days 05/28/2024 Active predniSONE 20 MG 1 tab(s) orally once a day; Duration: 3 days 05/28/2024 Active Pseudoephedrine HCl ER 120 MG 1 tab(s) orally daily; Duration: 30 days 05/28/2024 Active Prena1 *Please review a nd pick correct strength-formulati on from [facility] options. If intended option is not shown, discontinue and re-order from Quick Search* Active Tri-Sprintec 0.18/0.215/0.25 MG-35 MCG 1 tab(s) orally once a day Active Encounters Encounter Location Date Provider Diagnosis [facility] [address] [place] [address] 01/18/2025 Provider Migration Plan Of Treatment Medication Medication Name Sig Start Date Stop Date Notes Flonase Allergy Relief 50 MCG/ACT 1 spra y(s) in each nostril once a day; Duration: 30 days 05/28/2024 predniSONE 20 MG 1 tab(s) orally once a day; Duration: 3 days 05/28/2024 Pseudoephedrine HCl ER 120 MG 1 tab(s) o rally daily; Duration: 30 days 05/28/2024 Progress Notes * Hannah OCAMPO DDOB: 5 (29 yo F)Acc No.[id number]:01/18/2025 Patient: Maryan FOXby Cecilio Provider: Batsheva Tejeda :1995 A ge:29 Y S ex:Female Date:01/18/2025 Address:[address] [place] [address], [id number] Pcp:Jean Gandhi Subjective: * Chief Complaints: * 1 . [facility] To [facility] Conversion Encounter. * Medical History: * Medications: T aking Tri-Sprintec 0.18/0.215/0.25 MG-35 MCG Tablet 1 tab(s) orally once a day , Taking Prena1 , Notes to Pharmacist: *Please review and pick correct strength-formulation from [facility] options. If intended option is not shown, discontinue and re-order from Quick Search* * Allergies: N YQUIL COLD/FLU RELIEF: seizure type symptoms, ANTIHISTAMINES: seizure type symptoms. Objective: * Vitals: Assessment: Plan: * Treatment: * * Electronic signature of Prov ider Migration on 04/16/2025 at 07:44 PM EDT Sign off status: Pending * Provider: Batsheva bowers Migration Date: 01/18/2025 Generated for Saira torres/Ignacio/Maye on: 04/16/2025 07:44 PM EDT
--- OUTSIDE RECORDS SUMMARY | 2025-03-21 11:30 | XMS_ITS ---
Author Organization [facility] IM [facility] D JESSICA Address [address] [place], [place] [address] Care Team Providers Care Director Of Workforce Development Name Role Phone Jean Gandhi Primary Care Provider Amelia Bill Unavailable [phone] Cele Delgado Unavailable [phone] Allergies Allergen (clinical drug ingredient) Drug/Non Drug Allergy documented on EMR Reaction Allergy Type Onset Date Status ANTIHISTAMINES (uncoded) seizure type symptoms Allergy Active NYQUIL COLD/FLU RELIEF (uncoded) seizure type symptoms Allergy Active REASON FOR VISIT stuffy nose, face pressure, ears hurting, productive cough-greenish mucus, nasal drainage Medications Medication SIG (Take, Route, Frequency, Duration) Notes Start Date End Date Status Prena1 Active Flonase Allergy Relief 50 MCG/ACT 1 spray(s) in each nostril once a day; Duration: 30 days 05/28/2024 Active Vital Signs Temperature 98.5 degrees Fahrenheit 03/21/20 25 Heart Rate 80 /min 03/21/2025 Blood pressure systolic 118 mm Hg 03/21/20 25 Blood pressure diastolic 70 mm Hg 025 Height 5 ft 6.25 in in 03/21/2025 Weight 281.2 lbs 03/21/2025 BMI 45.04 kg/m2 03/21/2025 Encounters Encounter Location Date Provider Diagnosis [facility] [address] [place] [address] 03/21/2025 Cele Delgado Viral URI J06.9 Assessments Encounter Date Diagnosis (ICD Code) Assessment Notes Treatment Notes Treatment Clinical Notes Section Notes 03/21/2025 Viral URI (ICD-10 - J06.9) Reassurance. Discussed the etiology & expected course of a viral URI and discussed the rationale for not prescribing antibiotics. Continue supportive care with PRN antipyretics, appropriate OTC cough/cold meds as directed by OB, nasal saline rinses, cough drops, and humidifier. Encourage PO hydration. Discussed the signs and symptoms of worsening condition and need for reassessment in clinic or ED. Plan Of Treatment Treatment Notes Assessment Notes Viral URI Reassurance. Discuss ed the etiology & expected course of a viral URI and discussed the rationale for not prescribing antibiotics. Continue supportive care with PRN antipyretics, appropriate OTC cough/cold meds as directed by OB, nasal saline rinses, cough drops, and humidifier. Encourage PO hydration. Discussed the signs and symptoms of worsening condition and need for reassessment in clinic or ED. Next Appt Details Follow Up: prn, Reason: Progress Notes * Hannah OCAMPO DDOB: 5 (29 yo F)Acc No.[id number]:03/21/2025 Progress Notes Patient: Hannah FOX Cecilio Provider: Dali Delgado APRN :1995 A ge:29 Y S ex:Female Date:03/21/2025 Address:[address] [place] [address] [place], [id number] Pcp:Jean Gandhi Subjective: * Chief Complaints: * 1 . Stuffy nose, face pressure, ears hurting, productive cough-greenish mucus, nasal drainage. * HPI: E NT/respiratory: 29 year old female presents with c/o cough. c/o nasal congestion. c/o ear pain. c/o rhinorrhea. c/o postnasal drip. c/o facial pain.? c/o headache. Denies : fever. D enies : shortness of breath. D enies : wheeze. Patient who is 34 weeks presents with symptoms x 2-3 days. No fevers. Exposed to rhinovirus. Seen OB this morning who okay'd her to take sudafed x 2-3 days. Using flonase daily. * ROS: C ONSTITUTIONAL: no L oss of appetite. n o F ever. D ERMATOLOGY: no R abdoul. G ASTROENTEROLOGY: no N ausea. n o V omiting. n o D iarrhea.? * Medical History: M igraines, Murmur, Eczema, Recurrent otitis with tubes during childhood. * Social History: S moking A re you a:: nonsmoker. R ecreational drug use: no. Exercise: yes. Home smoke detector use: yes. Caffeine: yes, 1-2 sodas weekly. Living Will: No. Alcohol: socially. Sexually active: yes. Travel outside [place]: no. 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 Occup. exposure: none. * Medications: T bib Prena1 , Taking Flonase Allergy Relief 50 MCG/ACT Suspension 1 spray(s) in each nostril once a day , Discontinued Tri-Sprintec 0.18/0.215/0.25 MG-35 MCG Tablet 1 tab(s) orally once a day , Discontinued Pseudoephedrine HCl ER 120 MG Tablet Extended Release 12 Hour 1 tab(s) orally daily , Discontinued predniSONE 20 MG Tablet 1 tab(s) orally once a day , Medication List reviewed and reconciled with the patient * Allergies: N YQUIL COLD/FLU RELIEF: seizure type symptoms, ANTIHISTAMINES: seizure type symptoms. Objective: * Vitals: N urse: jl, Pain: 5-sinus pressure, Temp: 98.5, RR: 18, HR: 80, BP: 118/70, Ht: 5 ft 6.25 in, Wt: 281.2, BMI:45.04. * Examination: E NT/Respiratory: General Appearance : w ell nourished and hydrated, alert.? Ears: a uditory canals normal bilaterally, tympanic membranes normal bilaterally. Nose : m ild congestion . Sinuses : t susanna maxillary sinuses bilaterally, worse on right side. Oral Cavity n o erythema or exudate seen on pharynx. Neck : n o cervical lymphadenopathy. Heart : R RR, normal S1 S2, no murmurs. Lungs : c lear to auscultation bilaterally, no crackles or wheezes. Abdomen : s oft, NT/ND, BS present. Skin : c lear without rashes. Assessment: * Assessment: 1. V amishaal URI - J06.9 (Primary) Plan: * Treatment: * Follow Up: p rn * * Sign off status: Completed true * Provider: Dali Delgado APRN Date: 03/21/2025 Generated for Saira torres/Ignacio/eTransmitting on: 04/16/2025 07:43 PM EDT History and Physical Notes * HPI (History of Present Illness) Category Sub-Category Detail Notes Category Not es ENT/respiratory facial pain Patient who is 34 weeks presents with symptoms x 2-3 days. No fevers. Exposed to rhinovirus. Seen OB this morning who okay'd her to take sudafed x 2-3 days. Using flonase daily. ear pain shortness of breath cough fever postnasal drip headache rhinorrhea nasal congestion wheeze Examination Category Sub-Category Detail Notes Category Not es ENT/Respiratory Oral Cavity no erythema or exudate se en on pharynx Sinuses : tender maxillary sin uses bilaterally, worse on right side Ears: auditory canals norm al bilaterally, tympanic membranes normal bilaterally Neck : no cervical lymphade nopathy Heart : RRR, normal S1 S2, n o murmurs Lungs : clear to auscultatio n bilaterally, no crackles or wheezes Abdomen : soft, NT/ND, BS pres ent General Appearance : well nourished and hydrated, alert Nose : mild congestion Skin : clear without rashes
[2025-04-16 19:44] VITALS: BMI 45.3
--- OUTSIDE RECORDS SUMMARY | 2025-04-16 19:44 | XMS_ITS | Referral Summary ---
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 Making Machine Operator Name Role Phone Unavailable Primary Care Provider Unavailabl e Allergies Active Allergy Reactions Criticality Noted Date Comments Diphenhydramine Hcl 04/26/2023 Medications vitamin w/xevdovh-lgjm-i olate ( PLUS) 27 mg iron- 1 [...] of Transportation (Non-Medical) Not on file 05/10/2023 Food Insecurity Answer Date Recorded Food run [...] Date Mitchell rded Speak language other than North Korean at home Not on file 10/27/2023 Want help with school or training Not on file 10/27/2023 Substance Use Answer Date Recorded Used [...] Advance Directives For more information, please contact: [phone] * Full Code (Latest Code Status on File) Date Activated Date Inactivated Comments 05/10/2023 6:53 PM 05/12/2023 2:11 PM If no pulse: No intervention If has pulse: Use intubation, mechanical ventilation, defibrillation, ACLS medications, or cardioversion as indicated. Call RUBBER STAMP DIE INSPECTOR * Full Code Date Activated Date Inactivated Comments 05/10/2023 8:54 AM 05/10/2023 6:53 PM
--- OUTSIDE RECORDS SUMMARY | 2025-04-16 19:44 | XMS_ITS | Patient Health Record ---
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 Name Role Phone Jean Gandhi Primary Care Provider [phone] Amelia Bill Unavailable [phone] Cele Delgado Unavailable [phone] Amelia iVckers Unavailable [phone] Migration, Provider Unavailable Unavailable Allergies Allergen (clinical [...] MG 1 tablet Orally Twic e a day; Duration: 7 days 03/25/2025 Active Prena1 Active Flonase Allergy Relief 50 MCG/ACT 1 spray(s) in each nostril once a day; Duration: 30 days 05/28/2024 Active Immunizations Vaccine Route Administration Date Status Comme nts HPV4 (Gardasil Vaccine Dose 3-VFC) Unknown 12/08/2010 Administered HPV4 (Gardasil Vaccine Dose 2-VFC) IM Intramuscular 07/16/2010 Administered Gardisil (HPV4) VFC Unknown 06/01/2010 Administered Adacel (Tdap) IM Intramuscular 06/15/2016 Administered Problems Problem Type SNOMED Code ICD Code Onset Dates Problem Status W/U Status Risk Notes Problem Flexural eczema (13238038) Flexural eczema (L20.82) Active confirmed Problem Seasonal allergy (618281361) Seasonal allergies (J30.2) Active confirmed Problem Body mass index 40+ - morbidly obese (722351597) BMI 40.0-44.9, adult (Z68.41) Active confirmed Problem Obese class II (808318255452080 ) BMI 38.0-38.9,adul t (Z68.38) Active confirmed Problem 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 Vital Signs Heart Rate 80 /min 03/21/2025 Temperature 98.5 degrees Fahrenheit 03/21/2025 Blood pressure diastolic 70 mm Hg 03/21/2025 Height 5 ft 6.25 in in 03/21/2025 Blood pressure systolic 118 mm Hg 03/21/2025 Weight 281.2 lbs 03/21/2025 BMI 45.04 kg/m2 03/21/2025 Encounters Encounter Location Date Provider Diagnosis [facility] [address] [facility] [address] [address] 01/18/2025 Provider Migration [facility] [address] [address] 05/21/2024 Amelia Vickers Sore throat J02.9 and Viral URI J06.9 [facility] [address] [place] [address] [place] [address] 03/21/2025 Cele Delgado Viral URI J06.9 [facility] [address] [address] 05/28/2024 Amelia Vickers [facility] [address] [place] [facility] [address] [place] [address] 03/25/2025 Cele Delgado Assessments Encounter Date Diagnosis [...] Test Test Name Order Date Rapid Strep 03/19/2009 Rapid Strep 05/03/2012 Rapid Strep 12/05/2014 M-Complete Blood Count Auto Diff 021 M-Complete Blood Count Auto Diff 020 M-Comprehensive Metabolic Panel 06/04/20 20 M-Comprehensive Metabolic Panel 05/08/20 19 M-Comprehensive Metabolic Panel 06/16/20 21 M-Hemoglobin A1C 06/16/2021 M-Lipid Panel 06/04/2020 M-Lipid Panel 05/08/2019 M-Lipid Panel 06/16/2021 M-Thyroid Stimulating Hormone 06/04/2020 M-Thyroid Stimulating Hormone 05/08/2019 M-Thyroid Stimulating Hormone 06/16/2021 Insurance Providers Payer Name Payer Address Payer Phone Subscriber Number Group Number Insured Name Patient Relationship to Insured Coverage Start Date Coverage End Date [facility] [address] [place] [address] [id number] Hannah Ocampo Self - patient is the [...] anders Surgical History Surgery Date(Month/Year) ear tubes 2001 wisdom teeth extracted 2011 Hospitalization History Reason Date(Month/Year) reaction to stahist 2008 passing out 2007
--- OUTSIDE RECORDS SUMMARY | 2025-04-16 19:44 | XMS_ITS | Data Portability ---
Author Organization [facility] [place] Address [address] [facility] [address] [place] [address] Assessment No assessment recorded. Plan of Treatment Reminders Order Date Submit Date Provider Last Modified By Organization Details Last Modified Time Details Appointments None recorded. Lab urinalysis panel, auto 2022 023 [facility], [address] [place] [address] , [address], [place], [address], 3 08:39:58 urinalysis panel, auto 2022 023 [facility], [address] [facility] , [address], [place], [address], 3 08:48:54 Referral None recorded. Procedures None recorded. Surgeries None recorded. Imaging None recorded. Medication Orders Tri-Sprinte c (28) 0.18 mg(7)/0.215 mg(7)/0.25 mg(7)-0.035 mg tablet 2022 023 [facility], [address] [place], [address], 3 14:06:03 Tri-Sprinte c (28) 0.18 mg(7)/0.215 mg(7)/0.25 mg(7)-0.035 mg tablet 2022 023 [facility], [address] [place], [address], 10:02:03 Patient TargetsNo targets recorded. Patient InstructionsNo instructions recorded. Reason for Referral None Reported. Results Created Date Observation Date Name Description Value Unit Range Abnormal Flag Note LastModifiedBy Organization Detail LastModifiedTime 04/05/20 23 04/05/2023 urina lysis panel , auto Unknown Analyte Clean Catch Not Available [address], [place], [address], 04/05/2023 08:09:48 04/05/20 23 04/05/2023 urina lysis panel , auto Unknown Analyte Yellow Not Available [address], [place], [address], 04/05/2023 08:09:48 04/05/20 23 04/05/2023 urina lysis panel , auto Unknown Analyte Clear Not Available [address], [place], [address], 04/05/2023 08:09:48 04/05/20 23 04/05/2023 urina lysis panel , auto Unknown Analyte 1.015 Not Available [address], [place], [address], 04/05/2023 08:09:48 04/05/20 23 04/05/2023 urina lysis panel , auto Unknown Analyte 7.0 Not Available [address], [place], [address], 04/05/2023 08:09:48 04/05/20 23 04/05/2023 urina lysis panel , auto Unknown Analyte 25 Alice/ul Trace Not Available [address], [place], [address], 04/05/2023 08:09:48 04/05/20 23 04/05/2023 urina lysis panel , auto Unknown Analyte Negati ve Not Available [address], [place], [address], 04/05/2023 08:09:48 04/05/20 23 04/05/2023 urina lysis panel , auto Unknown Analyte Negati ve Not Available [address], [place], [address], 04/05/2023 08:09:48 04/05/20 23 04/05/2023 urina lysis panel , auto Unknown Analyte Normal Not Available [address], [place], [address], 04/05/2023 08:09:48 04/05/20 23 04/05/2023 urina lysis panel , auto Unknown Analyte 15 mg/dl (Sm) Not Available [address], [place], [address], 04/05/2023 08:09:48 04/05/20 23 04/05/2023 urina lysis panel , auto Unknown Analyte Normal Not Available [address], [place], [address], 04/05/2023 08:09:48 04/05/20 23 04/05/2023 urina lysis panel , auto Unknown Analyte Negati ve Not Available [address], [place], [address], 04/05/2023 08:09:48 04/05/20 23 04/05/2023 urina lysis panel , auto Unknown Analyte Negati ve Not Available [address], [place], [address], 04/05/2023 08:09:48 04/26/20 23 04/29/2023 CULTU RE, GROUP B STREP culture, group B strep No Group B Strept ococcu s isolat ed. Not Available [facility] [address] [facility], [place], [address], 04/29/2023 15:43:25 04/26/20 23 04/26/2023 urina lysis panel , auto Unknown Analyte Clean Catch Not Available [address], [place], [address], 04/26/2023 08:41:14 04/26/2004/26/2023 urina lysis panel , auto Unknown Analyte Yellow Not Available [address], [place], [address], 04/26/2023 08:41:14 04/26/2004/26/2023 urina lysis panel , auto Unknown Analyte Clear Not Available [address], [place], [address], 04/26/2023 08:41:14 04/26/20 23 04/26/2023 urina lysis panel , auto Unknown Analyte 1.010 Not Available [address], [place], [address], 04/26/2023 08:41:14 04/26/2004/26/2023 urina lysis panel , auto Unknown Analyte 7.0 Not Available [address], [place], [address], 04/26/2023 08:41:14 04/26/2004/26/2023 urina lysis panel , auto Unknown Analyte Negati ve Not Available [address], [place], [address], 04/26/2023 08:41:14 04/26/20 23 04/26/2023 urina lysis panel , auto Unknown Analyte Negati ve Not Available [address], [place], [address], 04/26/2023 08:41:14 04/26/2004/26/2023 urina lysis panel , auto Unknown Analyte Negati ve Not Available [address], [place], [address], 04/26/2023 08:41:14 04/26/2004/26/2023 urina lysis panel , auto Unknown Analyte Normal Not Available [address], [place], [address], 04/26/2023 08:41:14 04/26/20 23 04/26/2023 urina lysis panel , auto Unknown Analyte Negati ve Not Available [address], [place], [address], 04/26/2023 08:41:14 04/26/20 23 04/26/2023 urina lysis panel , auto Unknown Analyte Normal Not Available [address], [place], [address], 04/26/2023 08:41:14 04/26/2004/26/2023 urina lysis panel , auto Unknown Analyte Negati ve Not Available [address], [place], [address], 04/26/2023 08:41:14 04/26/20 23 04/26/2023 urina lysis panel , auto Unknown Analyte Negati ve Not Available [address], [place], [address], 04/26/2023 08:41:14 05/05/20 23 05/05/2023 urina lysis panel , auto Unknown Analyte Clean Catch Not Available [address], [place], [address], 05/05/2023 08:27:20 05/05/20 23 05/05/2023 urina lysis panel , auto Unknown Analyte Yellow Not Available [address], [place], [address], 05/05/2023 08:27:20 05/05/20 23 05/05/2023 urina lysis panel , auto Unknown Analyte Cloudy Not Available [address], [place], [address], 05/05/2023 08:27:20 05/05/20 23 05/05/2023 urina lysis panel , auto Unknown Analyte 1.015 Not Available [address], [place], [address], 05/05/2023 08:27:20 05/05/20 23 05/05/2023 urina lysis panel , auto Unknown Analyte 7.0 Not Available [address], [place], [address], 05/05/2023 08:27:20 05/05/20 23 05/05/2023 urina lysis panel , auto Unknown Analyte Negati ve Not Available [address], [place], [address], 05/05/2023 08:27:20 05/05/20 23 05/05/2023 urina lysis panel , auto Unknown Analyte Negati ve Not Available [address], [place], [address], 05/05/2023 08:27:20 05/05/20 23 05/05/2023 urina lysis panel , auto Unknown Analyte Negati ve Not Available [address], [place], [address], 05/05/2023 08:27:20 05/05/20 23 05/05/2023 urina lysis panel , auto Unknown Analyte Normal Not Available [address], [place], [address], 05/05/2023 08:27:20 05/05/20 23 05/05/2023 urina lysis panel , auto Unknown Analyte 15 mg/dl (Sm) Not Available [address], [place], [address], 05/05/2023 08:27:20 05/05/20 23 05/05/2023 urina lysis panel , auto Unknown Analyte Normal Not Available [address], [place], [address], 05/05/2023 08:27:20 05/05/20 23 05/05/2023 urina lysis panel , auto Unknown Analyte Negati ve Not Available [address], [place], [address], 05/05/2023 08:27:20 05/05/20 23 05/05/2023 urina lysis panel , auto Unknown Analyte Negati ve Not Available [address], [place], [address], 05/05/2023 08:27:20 05/10/20 23 05/10/2023 urina lysis panel , auto Unknown Analyte Clean Catch Not Available [address], [place], [address], 05/10/2023 08:31:32 05/10/20 23 05/10/2023 urina lysis panel , auto Unknown Analyte Pretty Not Available [address], [place], [address], 05/10/2023 08:31:32 05/10/20 23 05/10/2023 urina lysis panel , auto Unknown Analyte Clear Not Available [address], [place], [address], 05/10/2023 08:31:32 05/10/20 23 05/10/2023 urina lysis panel , auto Unknown Analyte 1.020 Not Available [address], [place], [address], 05/10/2023 08:31:32 05/10/20 23 05/10/2023 urina lysis panel , auto Unknown Analyte 6.0 Not Available [address], [place], [address], 05/10/2023 08:31:32 05/10/20 23 05/10/2023 urina lysis panel , auto Unknown Analyte Negati ve Not Available [address], [place], [address], 05/10/2023 08:31:32 05/10/20 23 05/10/2023 urina lysis panel , auto Unknown Analyte Negati ve Not Available [address], [place], [address], 05/10/2023 08:31:32 05/10/20 23 05/10/2023 urina lysis panel , auto Unknown Analyte Negati ve Not Available [address], [place], [address], 05/10/2023 08:31:32 05/10/20 23 05/10/2023 urina lysis panel , auto Unknown Analyte Normal Not Available [address], [place], [address], 05/10/2023 08:31:32 05/10/20 23 05/10/2023 urina lysis panel , auto Unknown Analyte Negati ve Not Available [address], [place], [address], 05/10/2023 08:31:32 05/10/20 23 05/10/2023 urina lysis panel , auto Unknown Analyte Normal Not Available [address], [place], [address], 05/10/2023 08:31:32 05/10/20 23 05/10/2023 urina lysis panel , auto Unknown Analyte Negati ve Not Available [address], [place], [address], 05/10/2023 08:31:32 05/10/20 23 05/10/2023 urina lysis panel , auto Unknown Analyte Negati ve Not Available [address], [place], [address], 05/10/2023 08:31:32 04/26/20 23 04/26/2023 US, obste tric, limit ed [place] [address] [place] [address] Patistuart chaparro Name: HANNAH mayfield : [birth year] 95 Heather amyfield 62 Orderi ng Provid er: ANDERS LAUREANO [...] weeks 6 days. Interp reted By: Ree Avila MD Electr onical ly Signed By: Ree Avila MD on 023 1:34 PM [facility] Radiology Obgyn [address] [facility] [address], [place], [address], 04/27/2023 21:06:41 Result Notes None recorded. Problems Name Problem SNOMED Code Status Onset Date Resolution Date Notes Provider Name and Address Organization Details Recorded Time 39757540 Completed 023 06/20/2023 Katharine Worthington [facility], [facility] 3 09:48:12 Problem Notes None recorded. Procedures Surgical History Date Name Laterality Status Provider Name and Address Organization Details Recorded Time 1 Pap Smear collection completed OMER RODRIGUEZ, CHAIR INSPECTOR AND LEVELER [address] [place], [address], [facility] 06/28/2021 14:19:34 1 Date of Last Pap Smear completed Angela Ortega [facility] 12/09/2022 08:05:34 procedure on ear completed Shawnapat Dowd [facility] 06/24/2020 14:45:54 [place] Teeth Extraction completed Shawna Dowd [facility] 06/24/2020 14:46:00 Imaging Results None recorded. Procedure Notes None recorded. Medical Equipment None Reported. Allergies Allergen ID Allergen Name Allergen Category Reaction Reaction Severity Criticality Documentation Date Start Date Code Code System Note Provider Name and Address Organization Details Recorded Time 460747 Benadryl medicatio n seizure moderate Not available 06/24/2020 7 RxNorm any simil ar medic ation as well [facility] 0 14:39:31 297033 diphenhyd ramine hydrochlo ride medicatio n Not available Not available Not available 05/12/20232022 1362 RxNorm Poly [facility] 16:13:37 Medications Name Sig Start Date Stop [...] Address Organization Details Last Updated DateTime 05/05/2023 16713.150243 g Cecilio DUMONT O [address] [place], [address], [facility] 05/05/2023 08:27:09 Date Recorded Body height Body mass index (BMI) Systolic blood pressure Diastolic blood pressure Provider Name and Address Organization Details Last Updated DateTime 05/05/2023 167.64 cm 29.5 kg/m2 138 mm[Hg] 90 mm[Hg] Ashleigh Diaz [facility] 05/05/2023 08:06:03 Date Recorded Body height Body mass index (BMI) Body weight Systolic blood pressure Diastolic blood pressure Provider Name and Address Organization Details Last Updated DateTime 05/10/2023 167.64 cm 45.5 kg/m2 979191.6 54508 g 152 mm[Hg] 98 mm[Hg] Ashleigh [facility] 3 08:11:44 Date Recorded Body height Body mass index (BMI) Body weight Systolic blood pressure Diastolic blood pressure Provider Name and Address Organization Details Last Updated DateTime 05/17/2023 167.64 cm 41.7 kg/m2 737724.2 7 g 138 mm[Hg] 82 mm[Hg] [facility] 3 09:35:58 Date Recorded Body height Body mass index (BMI) Body weight Systolic blood pressure Diastolic blood pressure Provider Name and Address Organization Details Last Updated DateTime 06/20/2023 167.64 cm 41.2 kg/m2 463515.8 69369 g 128 mm[Hg] 78 mm[Hg] Katharine Worthington [facility] 3 09:47:30 Date Recorded Body height Body mass index (BMI) Body weight Systolic blood pressure Diastolic blood pressure Provider Name and Address Organization Details Last Updated DateTime 07/26/2023 167.64 cm 41.8 kg/m2 844344.4 2 g 132 mm[Hg] 68 mm[Hg] Cira Avni [facility] 3 13:41:19 Social History Question Answer Notes LastModified by Neomend Details LastModified Time Tobacco Smoking Status Never Smoker [facility] 06/24/2020 14:45:11 What Is Your Level Of Caffeine Consumption? Moderate Information not available 06/24/2020 How Much Tobacco Do You Chew? None [email or web address] Information not available 06/24/2020 What Was The Date Of Your Most Recent Tobacco Screening? 07/26/2023 [email or web address] Information not available 07/26/2023 How Much Tobacco Do You Smoke? No [email or web address] Information not available 06/24/2020 Has Tobacco Cessation Counseling Been Provided? No [email or web address] Information not available 12/09/2022 Sex: Female Functional Status Question Answer Note LastModified by Neomend Details LastModified Time Do you use any illicit or recreational drugs? No [email or web address] Information not available 01/06/2023 Do you or have you ever used any other forms of tobacco or nicotine? No [email or web address] Information not available 12/09/2022 What is your level of alcohol consumption? Moderate [email or web address] Information not available 06/24/2020 Do you or have you ever used smokeless tobacco? Never used smokeless tobacco [email or web address] Information not available 06/24/2020 Do you or have you ever used e-cigarettes or vape? Never used electronic cigarettes [email or web address] Information not available 06/24/2020 Mental Status None recorded. Family History Relationship Description Onset Age of this Age Resolved Age Notes LastModified by Organization Details LastModified Time Maternal Grandmother Diabetes mellitus Not available 06/24 14:45:06 Medical History Condition Response Heart Problems N Other N Thyroid Problems N Depression N Lung Disease N Glaucoma N Anemia N Immune System Disorder N Anesthesia Complications Y Heart Attack (MS) N Deep Vein Thrombosis N Diabetes N Bleeding Disorder N Arthritis N Seizures/Epilepsy N AIDS/HIV N Hyperlipidemia N Cancer N Stroke N Varicosities N Asthma N Hoarseness N Shortness of Breath N Sleep Apnea N High Cholesterol N Hepatitis N Liver Disease N Headaches Y Hypertension N Chicken Pox Y Kidney Disease N Gynecological History Statement/Question Response Abnormal Pap [...] 3 completed NOA LAUREANO DO [address] [place], [address], [facility] 04/05/2023 09:16:55 Tdap 6 completed Not Available [facility] 05/12/2023 16:12:28 DTP-Hib 6 completed Not Available [facility] 05/12/2023 16:12:28 MMR 9 completed Not Available [facility] 05/12/2023 16:12:28 MMR 6 completed Not Available [facility] 05/12/2023 16:12:28 OPV 9 completed Not Available [facility] 05/12/2023 16:12:28 DTaP, unspecified formulation 9 completed Not Available [facility] 05/12/2023 16:12:28 Past Encounters Encounter ID Performer Location Encounter Start Date Encounter Closed Date Diagnosis/Indication Diagnosis SNOMED-CT Code Diagnosis ICD10 Code Diagnosis Note [id number] [address] [place] [address] 4 06/24/2020 14:27:02 06/24/2020 15:24:17 Routine gynecologic examination done 5257425176 9101 Z01.419 [facility] 497146935 Z30.[id number] [place] [id number] 06/28/2021 13:45:16 06/28/2021 14:20:06 Gynecologic examination 90071672 Z01.419 PAP obtained todaywill contact patient with resultsSdt ient to follow up in one year for annual exam or sooner as needed Screening for malignant neoplasm of cervix 082194293 Z12.4 [facility] 515949483 Z30.9 No C/I to estrogenNo history of migraines: PE: DVTNon smokerDeni es ACHES [id number] [address] [place] [address] 07/09/2021 14:23:45 07/09/2021 14:40:38 Pain in pelvis 08228078 R10.2 Discussed that right sided pain was likely ovulation due to descriptio n of symptoms and time during cycle it was occurring. Ultrasound was normal. Abnormal u terine bleeding 1546700215 9100 N93.9 Discussed that spotting was likely from pap smear and missing the couple doses of OCPs. Advised to try and take them the same time each day and will decrease likelihood of spotting. [id number] [address] [place] [address] 07/22/2022 13:29:06 07/22/2022 14:19:18 Gynecologic examination 56267404 Z01.419 PAP not indicated todayPatie nt to follow up in one year for annual exam or sooner as needed Family corry nning education 821237293 Z30.02 Recommende d weight loss prior to pregnancyD iscussed increased infertilit y, miscarriag es and complicati ons related to increased BMIAlso advised patient to start PNV now Recommende d avoidance of NSAIDs during ovulationP atient verbalized understand ing [id number] [address] [place] [address] 4 09/23/2022 09:25:31 09/23/2022 10:45:56 Amenorrhea 17066810 N91.2 of unknown location. Discussed possibilit y [...] progestero ne levels and call with results. [id number] [address] [place] [address] 4 10/20/2022 09:09:17 10/20/2022 10:37:16 Normal 34330654 Z34.80 New OB labs todayNT u/s next visit [id number] [address] [place] [address] 4 11/14/2022 07:41:55 11/14/2022 09:04:34 Routine care 731540961 Z34.91 New OB labs WNLNT WNLNIPT today [id number] [address] [place] [address] 4 12/09/2022 07:55:42 12/09/2022 08:35:42 Routine care 278125936 Z34.91 New OB labs WNLNT WNLNIPT low risk femaleAFP todayFetal anatomy next visit [id number] [address] [place] [address] 4 01/06/2023 07:55:48 01/06/2023 08:28:40 Routine care 261349442 Z34.92 New OB labs WNLNT WNLNIPT low risk femaleAFP low riskFetal anatomy WNL [id number] DO [address] [place] [address] 4 02/03/2023 08:16:02 02/03/2023 08:52:13 Routine care 863321660 Z34.92 New OB labs WNLNT WNLNIPT low risk femaleAFP low riskFetal anatomy WNLGCT next visit [id number] DO [address] [place] [address] 4 03/03/2023 07:57:06 03/03/2023 08:49:47 Routine care 576068403 Z34.92 New OB labs WNLNT WNLNIPT low risk femaleAFP low riskFetal anatomy WNLGCT today [id number] DO [address] [place] [address] 4 03/17/2023 07:58:04 03/17/2023 08:21:43 Routine care 373511525 Z34.92 New OB labs WNLNT WNLNIPT low risk femaleAFP low riskFetal anatomy WNLGCT elevated, needs GTT- completing todayTdap next visit [id number] [address] [place] [address] 4 04/05/2023 07:52:22 04/05/2023 08:39:42 Routine care 418324116 Z34.92 New OB labs WNLNT WNLNIPT low risk femaleAFP low riskFetal anatomy WNLGCT elevated, needs GTT WNLTdap todayGBS and growth scan next visit Administra tion of diphtheria, pertussis, and tetanus vaccine 781588906 Z23 [id number] [address] [place] [address] 04/26/2023 07:37:27 04/26/2023 09:30:03 Routine care 150672710 Z34.92 New OB labs WNLNT WNLNIPT low risk femaleAFP low riskFetal anatomy WNLGCT elevated, needs GTT WNLs/p TdapGBS todayGrowt h scan WNL [id number] DO HANY DUMONT [facility] [address] [place] [address] 05/05/2023 08:00:06 05/05/2023 08:36:02 Routine care 047650219 Z34.92 New OB labs WNLNT WNLNIPT low risk femaleAFP low riskFetal anatomy WNLGCT elevated, needs GTT WNLs/p TdapGBS negativeGr owth scan WNL [id number] DO HANY DUMONT [facility] [address] [place] [address] 05/10/2023 08:06:36 05/10/2023 08:45:12 Routine care 070405578 Z34.92 New OB labs WNLNT WNLNIPT low risk femaleAFP low riskFetal anatomy WNLGCT elevated, needs GTT WNLs/p TdapGBS negativeGr owth scan WNL - induced hypertension 83202004 O13.9 Will send to L&D for induction [id number] DO HANY DUMONT [facility] [address] [place] [address] 05/17/2023 08:56:59 05/17/2023 10:23:10 Maternal depression screening 0662144178 81733 Z13.32 Brief emotional/ behavioral assessment (e.g., depression inventory) , with scoring of __8 us ing instrument , [place] Depression Scale. state, 2 weeks 36824647 Z39.2 Doing well so far. Will have her return in 5 weeks for exam and control discussion . [id number] DO HANY CHATMAN [facility] [address] [place] [address] 06/20/2023 09:43:17 06/20/2023 10:18:30 Maternal depression screening 8764386502 02538 Z13.32 Brief emotional/ behavioral assessment (e.g., depression inventory) , with scoring of ___0____ using instrument , [place] Depression Scale. state 2256284 1 Z39.2 patient is PP from svdmom and baby are doing wellshe is bottle feeding without difficulty her mood is appropriat e and denies SI/HIshe was counseled on options for bc including r/b/a to each and desires to go back to cocpelvic exam wnlPap 2020 nil F/u after 07/22/22 for annual or sooner if needed Contracept ion care management 678434368 Z30.9 denies c/i to estrogen. rba discussed to options. desires to restart pills.rx sent to get to annualf/u bp check/clementine al Acne 38382059 L70.9 discussed bc options that are most vs least helpful. desires to restart olivia. rx sent [id number] OMER RODRIGUEZ [facility] [address] [place] [address] 07/26/2023 13:34:34 07/26/2023 14:02:43 Gynecologic examination 26849752 Z01.419 PAP not indicated todayPatie nt to follow up in one year for annual exam or sooner as needed Contracept ion care management 684802250 Z30.9 No history of migraines, DVT/PEnon smokerDeni [...] ID Guarantor Name 07/29/2024 1 BCMIKEY-VANDANA (PPO) [id number] Hannah Ocampo [id number] Hannah Ocampo Notes Date Note Type Note Provider Name and Address Organization Details Recorded Time 05/17/2023 text/html Patient here for visit s/p vaginal delivery 1 weeks ago. Doing well. Minimal lochia. Denies abnormal discharge, fever, chills. Formula feeding without difficulty. Denies signs of blues/depression NOA LAUREANO, DO [address] [place], [address], [facility] 05/17/2023 12:24:02 06/20/2023 text/html patient is PP fr om svdshe is doing wellbaby is doing wellshe is bottle feeding without difficultyher mood is appropriate and denies SI/HIshe denies fever, chills, nausea, vomiting, and her bleeding has stopped today on ROS she denies nausea, vomiting, fever, chills, hematuria, dysuria, abnormal vaginal discharge, odor, or itching. NOEMI TAYLOR, DO [address] [place], [address], [facility] 06/20/2023 12:43:59 07/26/2023 text/html 27 year old femconnie hill presents today for annual examlast PAP: 06/28/21: negative with negative HPV co testingno history of abnormal PAP LMP: 07/18/23 on 05/10/23 - female - Stellabottle feedinginfant doing well - sleeping through the night nowpatient returning to work next week current contraception: [employer] OMER RODRIGUEZ, CHAIR INSPECTOR AND LEVELER [address] [place], [address], [facility] 07/26/2023 14:04:14 OBGyn Episode Ob Episode Information Episode Created Date Number of Fetuses Patient Bloodtype Patient rh Status Prepregnancy Weight lbs Domestic Partner Domestic Partner Phone Father Name Automotive Brake Adjuster Status 10/20/19 23 1 B Positive 271 [...] Weight in lbs Pre/Post Dialysis Refused Weight 268.394469647738 BP Diastolic BP Location Tested BP Systolic [...] Weight in lbs Pre/Post Dialysis Refused Weight 264.88485654113 BP Diastolic BP Location Tested BP Systolic [...] Weight in lbs Pre/Post Dialysis Refused Weight 266.717722665383 BP Diastolic BP Location Tested BP Systolic [...] Weight in lbs Pre/Post Dialysis Refused Weight 130.081091322182 BP Diastolic BP Location Tested BP Systolic [...] Weight in lbs Pre/Post Dialysis Refused Weight 274.385952102216 BP Diastolic BP Location Tested BP Systolic [...] Weight in lbs Pre/Post Dialysis Refused Weight 276.734517594260 BP Diastolic BP Location Tested BP Systolic [...] Weight in lbs Pre/Post Dialysis Refused Weight 273.234498880097 BP Diastolic BP Location Tested BP Systolic [...] Weight in lbs Pre/Post Dialysis Refused Weight 272.996714823085 BP Diastolic BP Location Tested BP Systolic [...] Weight in lbs Pre/Post Dialysis Refused Weight 182.081947645503 BP Diastolic BP Location Tested BP Systolic [...] Weight in lbs Pre/Post Dialysis Refused Weight 281.724849811172 BP Diastolic BP Location Tested BP Systolic [...] Weight in lbs Pre/Post Dialysis Refused Weight 258.244691026217 BP Diastolic BP Location Tested BP Systolic BP Type 82 138 Fetus Heart Rate Present Fetus Movement Comments Flowsheet Date 06/20/2023 Fuentes Score Blood Edema Fundus Height Fundus Units Glucose Ketones Leukocytes Nitrite Labor Signs Protein Cervic Dilation Cervic Effacement Cervic Station Type Weight in lbs Pre/Post Dialysis Refused Weight 255.54168090103 BP Diastolic BP Location Tested BP Systolic [...] Estim ated Date of Delivery false Thalassemia (German, Tajik, Mediterranean, Or Background): MCV < 80 false Neural Tube Defect (Meningomyelocele, Spina Bifi da, Or Anencephaly) false Congenital Heart Defect false Down Syndrome false Gennaro-Sachs (eg, Baptism, Cajun, Sami-[place]) f alse Yemi Disease false Sickle Cell Disease Or Trait () false Hemophilia Or Other Blood Disorders false Muscular Dystrophy false Cystic Fibrosis false Bryan's Chorea false Mental Retardation/Autism false If Yes, [...] Sterilization Discharge Date Comments 3 Induce d [facility]- idural 38.2 Noa Laureano DO Discharge Information Feeding Method Contraceptive Method Maternal HG B and HCT Levels
--- OUTSIDE RECORDS SUMMARY | 2025-04-16 19:44 | XMS_ITS | Clinical Summary ---
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 Name Role Phone Unavailable Primary Care Provider Unavailabl e Allergies Active Allergy Reactions Criticality Noted Date Comments Diphenhydramine Hcl 04/26/2023 Medications vitamin w/pokduvk-mxoa-f olate ( PLUS) 27 mg iron- 1 [...] Date Mitchell rded Speak language other than [place]ese at home Not on file 10/27/2023 Want [...] and Screening (12+) 05/10/2024 05/10/2023 COVID-19 VACCINE (2023-2 5 season) 2024 Influenza Vaccine (Season Ended) 2025 DTAP/TDAP/TD VACCINES (4 - T d or Tdap) 04/05/2033 04/05/2023, 01/19/2006, 02/28/1996 Pneumococcal Vaccine: 0-49 Years Aged Out No longer eligible b ased on patient's age to complete this topic Insurance BLUE CROSS/BLUE SHIELD Advance Directives For more information, please contact: [phone] * Full Code (Latest Code Status on File) Date Activated Date Inactivated Comments 05/10/2023 6:53 PM 05/12/2023 2:11 PM If no pulse: No intervention If has pulse: Use intubation, mechanical ventilation, defibrillation, ACLS medications, or cardioversion as indicated. Call [facility] * Full Code Date Activated Date Inactivated Comments 05/10/2023 8:54 AM 05/10/2023 6:53 PM
[2025-04-16 20:18] VITALS: BP 118/80; PULSE 101; RESP 18; TEMP 37.2; O2SAT 97; BMI 45.1
[2025-04-16 20:18] LABS: Fetal Membrane Rupture (Rapid) Positive (Negative)
[2025-04-16] MEDS: LACTATED RINGERS 1000ML 1,000 ML 100 ML IV (21:01)
[2025-04-16 21:02] LABS: Hematocrit 33.7 % (37.0-47.0); Hemoglobin 11.3 g/dL (12.2-16.2); Immature Granulocytes % 0.5 %; Mean Corpuscular HGB Conc 33.5 g/dL (31.8-35.4); Mean Corpuscular Hemoglobin 27.3 pg (27.0-31.2); Mean Corpuscular Volume 81.4 fl (81-99); Nucleated Red Blood Cells % 0 %; Platelet Count 246 K/mm3 (142-424); Red Blood Count 4.14 M/mm3 (4.20-5.40); Red Cell Distribution Width-SD 41.0 fL; White Blood Count 11.3 K/mm3 (4.8-10.8)
[2025-04-16] MEDS: AMPICILLIN SODIUM 2 GM in 0.9 % SODIUM CHLORIDE 100 ML IV (21:02)
[2025-04-16] MEDS: LACTATED RINGERS 1000ML 1,000 ML 999 ML IV (21:30)
--- NOTE | 2025-04-16 22:48 | EXP.ANES.CKL ---
[facility] Disclaimer: The information contained in this section may have been updated after the patient was seen, as this information can be updated by other users. Medical History (Updated 04/11/25 @ 13:19 by Roma Clark DO) Positive GBS test History of gestational hypertension Maternal obesity affecting , antepartum Surgical History [place] teeth removed History of placement of ear tubes Family History Mother Cancer Other Diabetes Social History Smoking Status: Never smoker alcohol intake: never substance use type: denies use current occupational status: employed Travel in the last 8 weeks?: None [facility] Anesthesia Checklist Patient Identification Patient Identification: Arm Band Structural Data Admitted From: Inpatient Planned Operative Procedure/s: Labor Epidural Consent for Planned Operative Procedure(s) Verified: Yes Verified Documents: Surgical Consent and History and Physical NPO Status Verified Time NPO: 00:00 Additional verifications Anesthesia Reactions: No Neurological Assessment Level of Consciousness: Awake, Alert and Appropriate Anesthesia Plan Anesthesia Risk discussed: Yes Anesthesia Plan: Verified ASA Class: II Anesthesia Type: Epidural
[2025-04-16] MEDS: ePHEDrine SULF 50MG/ML VIAL 10 MG IV ×2 (22:49→23:17)
[2025-04-16] MEDS: DEXTROSE 5%-LACTATED RINGERS 1,000 ML 500 ML IV (22:50)
[2025-04-16 23:52] LABS: Microscopic, Urine URINE MICROSCOPIC (MICROSCOPIC)
[2025-04-17 00:02] LABS: Bilirubin,Urine Negative (Negative); Color,Urine RED (Yellow); Glucose,Urine (UA) Negative (Negative); Ketones,Urine Negative (Negative); Leukocyte Esterase,Urine 2+ (Negative); PH,Urine 8.0 (5.0-8.5); Protein,Urine 2+ (Negative); Specific Gravity, Urine 1.015 (1.005-1.030); Urobilinogen,Urine 0.2 EU/dl (0.2)
[2025-04-17] MEDS: LACTATED RINGERS 1000ML 1,000 ML 100 ML IV (00:44)
--- NOTE | 2025-04-17 02:16 | EXP.HP ---
History of Present Illness *Admission Date: 04/17/25 *Reason for visit:: Spontaneous rupture of membranes. *History of present illness: She is a 29-year-old 2 para 1 at 37+ weeks gestational age. She ruptured her membranes at 6:30 PM on the evening of April 16, 2025. [facility] Disclaimer: The information contained in this section may have been updated after the patient was seen, as this information can be updated by other users. Medical History Positive GBS test History of gestational hypertension Maternal obesity affecting , antepartum Surgical History [place] teeth removed History of placement of ear tubes Family History Diabetes Cancer Mother Social History Smoking Status: Never smoker alcohol intake: never substance use type: denies use current occupational status: employed Travel in the last 8 weeks?: None Have you lived/traveled outside US in past 30 days?: No Contact w/someone who lives/traveled outside US past 30 days?: No Exposure to someone with infectious disease in past 14 days?: No Do you have a fever (greater than 100.4 F or 38 C)?: No Have you tested positive for COVID-19?: No Exposed to someone with COVID-19 in past 14 days?: No Do you have a sore throat?: No Do you have a cough?: No Do you have any weakness?: No Do you have any diarrhea?: No Are you experiencing any unusual bleeding?: No Do you have any muscle aches/pain?: No Do you have any abdominal pain?: No Are you experiencing loss of taste or smell?: No Other Medical History Have you received the Flu Vaccine for this season: No Have you received the Pneumonia Vaccine: No Review of Systems Review of Systems Review of systems:: pertinent systems reviewed and negative unless documented below Meds Home Medications and Allergies Home Medications ?Medication ?Instructions ?Recorded ?Confirmed ?Type vits no.126-ferrous fum 1 tab PO DAILY 09/17/24 04/11/25 History 28 mg iron-folic acid 800 mcg tablet (Classic ) New Prescriptions to Start Prescriptions: Allergies Allergy/AdvReac Type Severity Reaction Status Date / Time Antihistamines - Alkylamine AdvReac Severe Seizure Verified 04/11/25 10:15 Exam Data for Last 24 hours Vital signs and Labs for Last 24 Hours: Temp Pulse Resp BP Pulse Ox O2 Del Method 98.9 F 101 H 18 118/80 97 Room Air 04/16/25 20:18 04/16/25 20:18 04/16/25 20:18 04/16/25 20:18 04/16/25 20:18 04/16/25 20:18 Laboratory Results - last 24 hr 04/16/25 19:56: Membrane Rupture Positive A 04/16/25 20:43: WBC 11.3 H, RBC 4.14 L, Hgb 11.3 L, Hct 33.7 L, MCV 81.4, MCH 27.3, MCHC 33.5, RDW 14.0, Plt Count 246, MPV 11.3 H, Neut % (Auto) 76.4, Lymph % (Auto) 18.0, Tift % (Auto) 4.6, Eos % (Auto) 0.3, Baso % (Auto) 0.2, Neut # (Auto) 8.6 H, Lymph # (Auto) 2.0, Tift # (Auto) 0.5, Eos # (Auto) 0.0, Baso # (Auto) 0.0, Blood Type B Positive, Antibody Screen Negative 04/16/25 23:35: Urine Color Red, Urine Appearance Sl cloudy, Urine pH 8.0, Ur Specific [place] 1.015, Urine Protein 2+ A, Urine Glucose (UA) Negative, Urine Ketones Negative, Urine Blood 3+ A, Urine Nitrate Negative, Urine Bilirubin Negative, Urine Urobilinogen 0.2, Ur Leukocyte Esterase 2+ A I & O for Last 24 hours: Intake & Output 04/14/25 04/15/25 04/16/25 04/17/25 11:59 11:59 11:59 11:59 Weight 280 lb 15.984 oz Constitutional Constitutional: no acute distress and morbidly obese *Routine HEENT Exam Head: Present normocephalic Eye: Present EOMI and PERRL ENT: Present mucous membranes moist *Routine Neck Exam Neck: Present supple; Absent lymphadenopathy *Routine Respiratory Exam Respiratory: Present CTA bilaterally *Routine Cardiovascular Exam Cardiovascular: Present RRR *Routine Abdominal Exam Abdominal: Present soft and normoactive bowel sounds; Absent tenderness *Routine Rectal Exam Rectal:: deferred *Routine Genitalia Exam Genitalia:: deferred *Routine Extremities Exam Extremities: Absent cyanosis, clubbing or edema *Routine Skin Exam Skin: Present warm; Absent rash *Routine Neurological Exam Neurological: Present alert and oriented X3 Assessment and Plan *Assessment and plan (1) Positive GBS test: Status: Acute Category: Medical Code(s): B95.1 - Streptococcus, group B, as the cause of diseases classified elsewhere (2) History of gestational hypertension: Status: Acute Category: Medical Code(s): Z87.59 - Personal history of other complications of , childbirth and the puerperium (3) Maternal obesity affecting , antepartum: Status: Acute Qualifiers: Obesity type affecting : unspecified obesity Qualified Code(s): O99.210 - Obesity complicating , unspecified trimester Category: Medical Code(s): O99.210 - Obesity complicating , unspecified trimester Plan 1. She spontaneously ruptured her membranes at 6:30 PM last evening. AmniSure was positive. 2. She has had a previous vaginal delivery. She has a history of gestational hypertension but this she has done well. 3. She is obese. 4. We will expect a vaginal delivery.
--- NOTE | 2025-04-17 02:18 | EXP.LABOR.NO ---
Labor Note Subjective: Date: 04/17/25 Time: 02:18 regular contraction Objective: NST:: Reactive Contractions:: every 4-5 minutes Cervical Dilation:: 3-4 Effacement:: 50% Station: -4 Membranes: spontaneously ruptured Fetus: Monitoring?: Yes monitoring type:: External Assessment: Labor progressing?: Yes Cephalopelvic disproportion?: No Plan: Anesthesia for epidural?: Yes Continue to labor down?: Yes Plan for ?: No Continue to monitor?: Yes Start pushing?: No Comment:: I examined her and the head was not engaged in the pelvis. The Riley catheter was not in the bladder. We will attempt to reinsert her Riley catheter and see if this helps bring the baby's head down. We will also perform an ultrasound to confirm that the baby's head is in the pelvis.
--- NOTE | 2025-04-17 02:56 | EXP.LABOR.NO ---
Labor Note Subjective: Date: 04/17/25 Time: 02:56 regular contraction Objective: NST:: Reactive Contractions:: every 4-5 minutes Cervical Dilation:: 3-4 Effacement:: 50% Station: -3 Membranes: spontaneously ruptured Fetus: Monitoring?: Yes monitoring type:: Internal Comment:: I inserted an IUPC and a scalp clip. Assessment: Labor progressing?: No Cephalopelvic disproportion?: No Plan: Anesthesia for epidural?: Yes Continue to labor down?: Yes Plan for ?: No Continue to monitor?: Yes Start pushing?: No Comment:: We are having difficulty picking up the heart tones properly so I have inserted an IUPC as well as scalp clip.
[2025-04-17 05:28] LABS: RBC,Urine TNTC #/hpf (0-3); Squamous Epithelial Cell,Urine 20-50 #/hpf (0-5); WBC,Urine TNTC #/hpf (0-3)
[2025-04-17 05:32] LABS: Bacteria,Urine Trace /lpf
--- NOTE | 2025-04-17 06:48 | EXP.DN ---
Delivery Note Delivery Date:: 04/17/25 Delivery Time:: 06:34 Anesthesia Type: Epidural Was labor medically induced?: Yes Induction method: none Gestational age (weeks): 37 Infant delivered prior to 39 weeks?: Yes Justification for early elective delivery:: Active Labor Gender: Male at 1 minute: 8 at 5 minutes: 9 Delivery Procedure:: She is a 29-year-old 2 para 1 at 37 weeks gestational age. She arrived with spontaneous rupture of membranes on the evening of April 16, 2025. She was observed overnight and under labor epidural progressed to full dilation. She delivered spontaneously a liveborn male child at 6:34 AM on the morning of April 17, 2025. On delivery of the head there was a nuchal cord that was easily reduced. The anterior shoulder then easily delivered followed by the rest of the 's body atraumatically. The baby's oropharynx and nose parents were bulb suction. The baby was vigorous so we allowed the cord to continue to pulsate for approximately 1 minute. The cord was then doubly clamped and cut and the infant was placed on the mother's abdomen for further care. The nurses assigned Apgars of 8 at 1 minute and 9 at 5 minutes. We then obtained cord blood. She received IV oxytocin using gentle traction on the cord and countertraction the fundus I was able to easily deliver the placenta intact 6 minutes after delivery. It had a normal three-vessel cord. There were no perineal or vaginal lacerations. She has been positive blood, she is rubella immune and was group B streptococcus positive. She did receive IV antibiotics while in labor. Her estimated blood loss was approximately 100 cc. Placental Delivery Description: Spontaneous
[2025-04-17 07:28] LABS: RPR W/RFX Titers Nonreactive (Nonreactive)
[2025-04-17] MEDS: ACETAMINOPHEN 500MG TAB 1000 MG PO ×2 (08:01→16:13)
[2025-04-17] MEDS: IBUPROFEN 400 MG TABLET 800 MG PO ×2 (08:01→22:08)
[2025-04-17] MEDS: SENNA 8.6MG TABLET 8.6 MG PO (17:01)
[2025-04-18] MEDS: ACETAMINOPHEN 500MG TAB 1000 MG PO ×2 (04:12→09:47)
[2025-04-18] MEDS: SENNA 8.6MG TABLET 8.6 MG PO (04:15)
[2025-04-18 06:04] LABS: Hematocrit 32.3 % (37.0-47.0); Hemoglobin 10.1 g/dL (12.2-16.2)
--- NOTE | 2025-04-18 07:41 | P.DS_ITS ---
General Admission date:: 04/17/25 Discharge date: 04/18/25 HPI HPI HPI: PPD #1 s/p Feeling well. Pain controlled. Formula feeding. Lochia is appropriate. Voiding without difficulty and passing flatus. Tolerating regular diet. Denies fever/chills, chest pain and shortness of breath. No headaches, vision changes, lightheadedness/dizziness. No lower extremity swelling. Ambulating well ad sofiya. Hospital Course Hospital Course Hospital Course: Mrs Hannah Ocampo is a 29-year-old 2 para 1 at 37w6d who presented to [facility] L[facility]D with complaint of leakage of fluid that started at 1830 on 04/16/25. Upon arrival Amnisure was positive. Cervical exam . She had good care. GBS positive. She underwent labor augmenation with pitocin. She had a normal spontaneous vaginal delivery on 04/17/25 at 0634. She delivered a live male baby, Jose Alvarado, weighing 8 lb 3 oz. Apgars 8 (1 min), 9 (5 min). EBL 100 mL. She did well . Pain controlled. Formula feeding. Light lochia. Voiding without difficulty and passing flatus. Tolerating regular diet. Denies fever/chills, chest pain and shortness of breath. No headaches, dizziness/lightheadedness or vision changes. Vital signs stable, afebrile. Heart regular rate and rhythm. Lungs clear to auscultation. Abdomen soft, nontender. No lower extremity swelling. Ambulating well ad sofiya. Normal hospital course. She was discharged to home on PPD # 1 with instructions to follow-up in the office in 2 weeks or sooner if needed. Exam Data for Last 24 hours Vital signs and Labs for Last 24 Hours: Temp Pulse Resp BP Pulse Ox O2 Del Method 98.9 F 101 H 18 118/80 97 Room Air 04/16/25 20:18 04/16/25 20:18 04/16/25 20:18 04/16/25 20:18 04/16/25 20:18 04/16/25 20:18 Laboratory Results - last 24 hr 04/18/25 05:15: Hgb 10.1 L, Hct 32.3 L I & O for Last 24 hours: Intake & Output 04/15/25 04/16/25 04/17/25 07/04/25 23:59 23:59 23:59 23:59 Output Total 1250 / 1250 Balance -1250 / -1250 Weight 280 lb 15.984 oz Constitutional Constitutional: no acute distress and cooperative *Routine HEENT Exam Head: Present normocephalic and atraumatic Eye: Absent conjunctivae pink ENT: Present mucous membranes moist *Routine Neck Exam Neck: Present full ROM *Routine Respiratory Exam Respiratory: Present CTA bilaterally and normal respiratory effort *Routine Cardiovascular Exam Cardiovascular: Present RRR *Routine Abdominal Exam Abdominal: Present soft; Absent tenderness or distended Comments: Uterine fundus firm and below umbilicus *Routine Rectal Exam Patient deferred: visual exam *Routine Exam Patient deferred: external exam *Routine Extremities Exam Extremities: Present full ROM; Absent edema or calf tenderness *Routine Neurological Exam Neurological: Present alert, moving all extremities and normal speech Routine Psychiatric Exam Psychiatric: Present normal affect and cooperative Results Data Completed and Pending Labs on day of discharge: Labs from last 24 hours 04/18/25 05:15 Hgb 10.1 L Hct 32.3 L DS: Diagnosis Discharge Diagnosis (1) Status post normal vaginal delivery: Status: Acute (2) Positive GBS test: Status: Acute Code(s): B95.1 - Streptococcus, group B, as the cause of diseases classified elsewhere (3) History of gestational hypertension: Status: Acute Code(s): Z87.59 - Personal history of other complications of , childbirth and the puerperium (4) Maternal obesity affecting , antepartum: Status: Acute Code(s): O99.210 - Obesity complicating , unspecified trimester Qualifiers: Obesity type affecting : unspecified obesity Qualified Code( s): O99.210 - Obesity complicating , unspecified trimester (5) Acute blood loss anemia: Status: Acute Code(s): D62 - Acute posthemorrhagic anemia Meds Home Medications and Allergies Home Medications ?Medication ?Instructions ?Recorded ?Confirmed ?Type vits no.126-ferrous fum 1 tab PO DAILY 04/17/25 History 28 mg iron-folic acid 800 mcg tablet (Classic ) New Prescriptions to Start Prescriptions: Allergies Allergy/AdvReac Type Severity Reaction Status Date / Time Antihistamines - Alkylamine AdvReac Severe Seizure Verified 04/11/25 10:15 Discharge Plan Disposition Patient Disposition: Home, Self-Care Condition: Good Discharge Order Discharge Orders: Discharge Order (Routine); Ordered 04/18/25 Ordered By: Roma Clark Follow up Plan Follow up with: Roma Clark DO [Staff Physician, MACHINERY CLEANER] - 2 weeks Prescriptions/Medication Reconciliation: Continued Classic 28 mg iron- 800 mcg tablet 1 tab PO DAILY Problem Reconciliation Problems Reviewed?: Yes Patient Discharge Instructions ACTIVITY: Limited activity DIET: continue same diet and regular diet Additional Instructions: Congratulations!! Discharge: 1. Take 800 mg Ibuprofen every 8 hours as needed for pain. You can also take 500-1000 mg of Tylenol in between doses, every 6-8 hours. 2. Nothing in the vagina for 6 weeks - no intercourse, douching or tampons. No tub baths/hot tubs or swimming pools 3. Reasons to return to L&D or call On-Call doctor - fever (greater than 100.4) - heavy vaginal bleeding (soaking through 1 pad in less than 2 hours) - vaginal discharge (malodorous and/or purulent) - severe headaches not resolved by medication or rest and leg tenderness/swelling 4. depression/blues - Normal to feel anxious/overwhelmed for first 2 weeks - Talk to your doctor if: severe anxiety, trouble bonding with baby, withdrawing from other family members, thoughts of harming yourself or others Roma Clark DO [facility] [phone] Print Language: Wolof Providers Primary Care Provider: Jean Gandhi Admit Provider: Donato Crowder Attending Provider: Donato Crowder
[2025-04-18 09:41] VITALS: BP 123/78; PULSE 60; RESP 16; TEMP 36.6; O2SAT 96
[2025-04-18] MEDS: IBUPROFEN 400 MG TABLET 800 MG PO (09:47)
== END 2025-04-18 13:14 | disposition home or self-care (01) | DRG 806 ==
LOC: OBOUT 05:14 → OB 05:14
PROVIDERS: Admitting Provider Nurse Practitioner Obstetrics & Gynecology; PCP Internal Medicine Adolescent Medicine; Visit Provider Nurse Practitioner Obstetrics & Gynecology
DX: O99.824 Streptococcus B carrier state complicating childbirth (principal); D62 Acute posthemorrhagic anemia; Z37.0 Single live birth; O69.81X0 Labor and delivery complicated by cord around neck, without compression, not applicable or unspecified; O90.81 Anemia of the puerperium; O99.214 Obesity complicating childbirth; Z3A.37 37 weeks gestation of pregnancy; Z88.8 Allergy status to other drugs, medicaments and biological substances; Z87.59 Personal history of other complications of pregnancy, childbirth and the puerperium
CPT/HCPCS: 36415; 51702; 59025; 81001; 84112; 85014; 85018; 85025; 86592; 86850; 87086; 94761; C1758; J0290; J2003; J2795; J3010; J7120; J7121